=== PATIENT | female | born 1975 | race Caucasian/White ===

== ENCOUNTER 2016-06-07 11:08 | Inpatient (IN) | payer OTHER ==
[2016-06-07 11:52] VITALS: BMI 21.2
--- NOTE | 2016-06-07 14:13 | HP ---
COWS - Scale Resting Pulse: 1= [place] 81-100 Sweatin= Chills/Flushing Restless Observation: 3= Extraneous Movement Pupil Size: 2= Moderately Dilated Bone or Joint Aches: 4=Acute Joint/Muscle Pain Runny Nose/ Eye Tearin= Nasal Congestion GI Upset > 30mins: 1= Stomach Cramp Tremor Observation: 2= Slight Tremor Visible Yawning Observation: 2= >3x During Session Anxiety or Irritability: 1=Feels Anxious/Irritable Goose Flesh Skin: 0=Smooth Skin COWS Score: 18 CIWA Score - CIWA Score Nausea/Vomitin-No Nausea/No Vomiting Muscle Tremors: 3 Anxiety: 4-Mod. Anxious/Guarded Agitation: 4-Moderately Restless Paroxysmal Sweats: 1-Minimal Palms Moist Orientation: 0-Oriented Tacttile Disturbances: 3-Moderate Itch/Numb/Burn Auditory Disturbances: 0-None Visual Disturbances: 0-None Headache: 0-None Present CIWA-Ar Total Score: 15 Admission ROS S - HPI Chief Complaint: DETOX TX FOR HEROIN AND BENZO( URINE TOXICOLOGY NEGATIVE TODAY) Allergies/Adverse Reactions: Allergies Allergy/AdvReac Type Severity Reaction Status Date / Time No Known Allergies Allergy Verified 06/07/16 12:34 History of Present Illness: 40 Y/O FEMALE WITH A HX OF HEROIN AND KLONOPIN DEPENDENCE WITH OCCASIONAL COCAINE AND PCP USE SEEKING DETOX TX. Exam Limitations: No Limitations - Ebola screening Have you traveled outside of the country in the last 21 days: No Have you had contact with anyone from an Ebola affected area: No Have you been sick,other than usual withdrawal symptoms: No Do you have a fever: No - Review of Systems Constitutional: Chills, Night Sweats, Changes in sleep EENT: reports: Tearing, Nose Congestion, Dental Problems (FILLINGS/CAPPED TOOTH) Respiratory: reports: No Symptoms reported Cardiac: reports: No Symptoms Reported GI: reports: Constipated, Diarrhea, Nausea, Poor Fluid Intake, Vomiting : reports: No Symptoms Reported Musculoskeletal: reports: Back Pain, Joint Pain, Muscle Pain Integumentary: reports: Bruising (FROV IVD USE ON HANDS/ELBOW) Neuro: reports: Headache Endocrine: reports: No Symptoms Reported Hematology: reports: No Symptoms Reported Psychiatric: reports: Orientated x3, Anxious Other Systems: Reviewed and Negative Patient History - Patient Medical History Hx Anemia: No Hx Asthma: No Hx Chronic Obstructive Pulmonary Disease (COPD): No Hx Cardiac Disorders: No Hx Hypertension: No Hx Hypercholesterolemia: No HX Cerebrovascular Accident: No Hx Seizures: No Hx Diabetes: No Hx Gastrointestinal Disorders: No Hx Genitourinary Disorders: No Hx Sexually Transmitted Disorders: No Hx Renal Disease (ESRD): No Hx Thyroid Disease: No Hx Human Immunodeficiency Virus (HIV): No (NEGATIVE HX) Hx Hepatitis C: No Hx Depression: Yes (ANXIETY-GABAPENTIN/VISTARIL--DID NOT TAKE THEM.) Hx Suicide Attempt: No (DENIES) Hx Schizophrenia: No - Patient Surgical History Past Surgical History: Yes Hx Neurologic Surgery: No Hx Cataract Extraction: No Hx Cardiac Surgery: No Hx Lung Surgery: No Hx Breast Surgery: No Hx Breast Biopsy: No Hx Abdominal Surgery: No Hx Appendectomy: Yes Hx Genitourinary Surgery: Yes (URETHOTOMY IN 1998) Hx Section: No Hx Orthopedic Surgery: No Hx Hysterectomy: No Anesthesia Reaction: No - PPD History Previous Implant?: Yes Documented Results: Negative w/o proof Implanted On Prior R Admission?: No PPD to be Administered?: Yes - Reproductive History Patient is a Female of Child Bearing Age (11 -55 yrs old): Yes Last Menstrual Period: 05/27/16 Patient : No - Smoking Cessation Smoking history: Current every day smoker Have you smoked in the past 12 months: Yes Aproximately how many cigarettes per day: 10 Hx Chewing Tobacco Use: No Initiated information on smoking cessation: Yes 'Breaking Loose' booklet given: 06/07/16 - Substance & Tx. History Hx Alcohol Use: No (DENIES) Hx Substance Use: Yes (HEROIN/COCAINE/KLONOPIN/PCP) Substance Use Type: Cocaine, Heroin, Tranquilizers Hx Substance Use Treatment: Yes ([facility]-DETOX) - Substances Abused Heroin Route: Injection Frequency: Daily Amount used: 6-8 BAGS Age of first use: 29 Date of Last Use: 06/07/16 Benzodiazepine (Klonopin) Route: Oral Frequency: Daily Amount used: 4MG Age of first use: 38 Date of Last Use: 06/07/16 PCP Route: Smoking Frequency: 1-3 times last 30 days Amount used: 1 BLUNT Age of first use: 39 Date of Last Use: 06/04/16 Cocaine Route: Inhalation Frequency: 1-3 times last 30 days (3 TIMES LAST WEEK AND LAST NIGHT FOR THE FIRST TIME.) Amount used: 1/2 DIME Age of first use: 40 Date of Last Use: 06/06/16 Family Disease History - Family Disease History Family Disease History: Other: Mother (HTN) Admission Physical Exam [facility] - Vital Signs Vital Signs: Vital Signs - 24 hr 06/07/16 11:48 Temperature 96.4 F L Pulse Rate 97 H Respiratory 20 Rate Blood Pressure 100/61 - Physical General Appearance: Yes: Moderate Distress, Irritable, Anxious HEENTM: Yes: EOMI, Normocephalic, KRISTI, Pharynx Normal Respiratory: Yes: Chest Non-Tender, Lungs Clear, Normal Breath Sounds, No Respiratory Distress Neck: Yes: Supple, Trachea in good position Breast: Yes: Breast Exam Deferred Cardiology: Yes: Regular Rhythm, Regular Rate, S1, S2 Abdominal: Yes: Normal Bowel Sounds, Non Tender, Flat, Soft Genitourinary: Yes: Other (N/C) Musculoskeletal: Yes: full range of Motion, Gait Steady Extremities: Yes: Normal Range of Motion, Non-Tender Neurological: Yes: quality review specialist II-XII NML intact, Fully Oriented, Alert, Motor Strength 5/5 Integumentary: Yes: Dry, Warm, Track Rizzo (BOTH ELBOWS/HAND) Lymphatic: Yes: Within Normal Limits - Diagnostic (1) Opioid dependence with withdrawal Current Visit: Yes Status: Acute (2) PCP dependence Current Visit: Yes Status: Acute (3) Cocaine abuse Current Visit: Yes Status: Acute (4) Anxiety and depression Current Visit: Yes Status: Suspected Cleared for Admission [facility] - Detox or Rehab [facility] Level of Care: Medically Managed Detox Regimen/Protocol: Methadone [facility] Breath Alcohol Content Breath Alcohol Content: 0 Urine Pregancy Test - Result Urine Test Results: Negative- NO Line Present Urine Drug Screen - Results Drug Screen Negative: No Urine Drug Screen Results: ASHTYN-Cocaine, OPI-Opiates, PCP-Phencyclidine
[2016-06-07] MEDS ORDERED: METHADONE HCL 10 MG TABLET (FOR DETOX USE ONLY) PO ONE ×2 (14:29→23:00)
[2016-06-07] MEDS ORDERED: MAG HYDROX/AL HYDROX/SIMETH 30 ML UNIT-DOSE CUP PO PRN (14:29)
[2016-06-07] MEDS ORDERED: MAGNESIUM CITRATE 300 ML BOTTLE PO PRN (14:29)
[2016-06-07] MEDS ORDERED: P-EPHED 60MG/TRIPROLIDI 2.5MG TABLET PO PRN (14:29)
[2016-06-07] MEDS ORDERED: MENTHOL/PHENOL 1 EACH UD MM PRN (14:29)
[2016-06-07] MEDS ORDERED: IBUPROFEN 400 MG TABLET (FP) PO PRN (14:29)
[2016-06-07] MEDS ORDERED: guaiFENesin/D-METHORPHAN HB 10 ML UNIT-DOSE CUPS PO PRN (14:29)
[2016-06-07] MEDS ORDERED: diphenhydrAMINE HCL 50 MG CAPSULE PO PRN (14:29)
[2016-06-07] MEDS ORDERED: LOPERAMIDE HCL 2 MG CAPSULE PO PRN (14:29)
[2016-06-07] MEDS ORDERED: hydrOXYzine PAMOATE 50 MG CAPSULE (FP) PO PRN (14:29)
[2016-06-07] MEDS: diazePAM 5 MG TABLET PO PRN (15:39)
[2016-06-07] MEDS: NICOTINE 14 MG/24 HOURS TOPICAL PATCH TD SCH (15:43)
[2016-06-07 19:44] LABS: URINE APPEARANCE CLOUDY; URINE BILIRUBIN NEGATIVE (NEGATIVE); URINE COLOR DKYELLOW; URINE GLUCOSE (UA) NEGATIVE (NEGATIVE); URINE KETONE NEGATIVE (NEGATIVE); URINE LEUK ESTERASE NEGATIVE (NEGATIVE); URINE NITRITE NEGATIVE (NEGATIVE); URINE UROBILINOGEN 2.0 E.U/dl E.U./dl (0.2-1.0)
[2016-06-07 19:58] LABS: URINE BLOOD 1+ (NEGATIVE); URINE PROTEIN 1+ (NEGATIVE)
[2016-06-07 20:14] LABS: URINE BACTERIA RARE /hpf (NONE SEEN); URINE MUCUS MODERATE; URINE RBC 23 /hpf (0-3); URINE WBC 7 /hpf (3-5)
[2016-06-07] MEDS: THIAMINE HCL 100 MG TABLET (FP) PO SCH (22:08)
[2016-06-08] MEDS ORDERED: METHADONE HCL 10 MG TABLET (FOR DETOX USE ONLY) PO ONE (10:00)
[2016-06-08 10:16] LABS: MCH 28.8 pg (25.7-33.7); MCHC 32.5 g/dl (32.0-36.0); MEAN CELL VOLUME 88.7 fl (80-96); MEAN PLT VOLUME 10.6 fl (7.5-11.1); PLATELET COUNT 194 K/MM3 (134-434); RDW 14.7 % (11.6-15.6); WHITE BLOOD COUNT 4.9 K/mm3 (4.0-10.0)
[2016-06-08] MEDS: diazePAM 5 MG TABLET PO PRN ×2 (10:16→22:08)
[2016-06-08] MEDS: ACETAMINOPHEN 325 MG TABLET (FP) PO PRN (10:16)
[2016-06-08] MEDS: PRENATAL VITAMINS W/ FOLIC ACID TABLET (FP) PO SCH (10:16)
[2016-06-08] MEDS: NICOTINE 14 MG/24 HOURS TOPICAL PATCH TD SCH (10:17)
--- NOTE | 2016-06-08 10:33 | PN ---
S CIWA - CIWA Score Nausea/Vomitin Muscle Tremors: 3 Anxiety: 2 Agitation: 4-Moderately Restless Paroxysmal Sweats: 2 Orientation: 0-Oriented Tacttile Disturbances: 2-Mild Itch/Numbness/Burn Auditory Disturbances: 0-None Visual Disturbances: 2-Mild Sensitivity Headache: 1-Very Mild CIWA-Ar Total Score: 18 BHS COWS - Scale Resting Pulse: 1= [place] 81-100 Sweatin=Flushed/Facial Moisture Restless Observation: 1= Difficult to Sit Still Pupil Size: 2= Moderately Dilated Bone or Joint Aches: 2= Severe Diffuse Aches Runny Nose/ Eye Tearin= Runny Nose/Eyes GI Upset > 30mins: 2= Nausea/Diarrhea Tremor Observation of Outstretched Hands: 2= Slight Tremor Visible Yawning Observation: 1= 1-2x During Session Anxiety or Irritability: 2=Irritable/Anxious Goose Flesh Skin: 0=Smooth Skin COWS Score: 17 S Progress Note (SOAP) Objective: 06/08/16 10:32 Laboratory Tests 06/07/16 06/08/16 15:46 06:00 WBC 4.9 RBC 4.29 Hgb 12.4 Hct 38.0 MCV 88.7 MCHC 32.5 RDW 14.7 Plt Count 194 MPV 10.6 Urine Color Dkyellow Urine Appearance Cloudy Urine pH 5.0 Ur Specific [place] 1.029 Urine Protein 1+ H Urine Glucose (UA) Negative Urine Ketones Negative Urine Blood 1+ H Urine Nitrite Negative Urine Bilirubin Negative Urine Urobilinogen 2.0 e.u/dl H Ur Leukocyte Esterase Negative Urine RBC 23 Urine WBC 7 Ur Epithelial Cells Many Urine Bacteria Rare Urine Mucus Moderate Vital Signs - 24 hr 06/07/16 06/07/16 06/07/16 11:48 15:27 18:02 Temperature 96.4 F L 97.7 F 97.3 F L Pulse Rate 97 H 94 H 76 Respiratory 20 18 18 Rate Blood Pressure 100/61 97/56 97/53 06/07/16 06/07/16 06/08/16 18:18 21:43 00:30 Temperature 97.3 F L 97.7 F Pulse Rate 76 103 H Respiratory 18 16 16 Rate Blood Pressure 97/53 84/60 06/08/16 06/08/16 06:00 10:15 Temperature 97.9 F 97.7 F Pulse Rate 84 92 H Respiratory 18 18 Rate Blood Pressure 101/61 100/61 Assessment: 06/08/16 10:33 ONGOING WITHDRAWAL Plan: CONTINUE DETOX PROTOCOL
[2016-06-08 10:35] LABS: ALBUMIN 3.7 g/dl (3.4-5.0); ALK PHOS 52 U/L (45-117); ANION GAP 8 (8-16); BILIRUBIN,TOTAL 0.2 mg/dL (0.2-1.0); CALCIUM 8.9 mg/dL (8.5-10.1); CO2 31 mmol/L (21-32); CREATININE 0.7 mg/dL (0.55-1.02); GLUCOSE,RANDOM 92 mg/dL (74-106); SGOT/AST 21 U/L (15-37); SGPT/ALT 37 U/L (12-78); TOT PROT 6.8 g/dl (6.4-8.2)
--- NOTE | 2016-06-08 11:14 | EKG ---
Test Reason : Blood Pressure : / mmHG Vent. Rate : 075 BPM Atrial Rate : 075 BPM P-R Int : 090 ms QRS Dur : 090 ms QT Int : 372 ms P-R-T Axes : 049 061 046 degrees QTc Int : 415 ms SINUS RHYTHM WITH SHORT IN OTHERWISE NORMAL ECG NO PREVIOUS ECGS AVAILABLE Confirmed by MARY JANE PAYAN MD ([id number]) on 06/08/2016 11:14:24 AM Referred By: Confirmed By:MARY JANE PAYAN MD
--- NOTE | 2016-06-08 15:28 | CONSULT ---
[facility] Psychiatric Consult - Data Date of interview: 06/08/16 Admission source: [facility] Identifying data: First admission to [facility] for this 40 y/o female seeking detox treatment on for heroin,benzodiazepine (klonopin),cocaine and phencyclidine dependence.Patient is single without children,domiciled, unemployed and supported on food stamps. Substance Abuse History: - Smoking Cessation. Smoking history: Current every day smoker. Have you smoked in the past 12 months: Yes. Aproximately how many cigarettes per day: 10. Hx Chewing Tobacco Use: No. Initiated information on smoking cessation: Yes. 'Breaking Loose' booklet given: 06/07/16. - Substance & Tx. History. Hx Alcohol Use: No (DENIES). Hx Substance Use: Yes (HEROIN/ COCAINE/KLONOPIN/PCP). Substance Use Type: Cocaine, Heroin, Tranquilizers. Hx Substance Use Treatment: Yes ([facility]-DETOX). - Substances Abused. Heroin. Route: Injection. Frequency: Daily. Amount used: 6-8 BAGS. Age of first use: 29. Date of Last Use: 06/07/16. Benzodiazepine ( Klonopin). Route: Oral. Frequency: Daily. Amount used: 4MG. Age of first use : 38. Date of Last Use: 06/07/16. PCP. Route: Smoking. Frequency: 1-3 times last 30 days. Amount used: 1 BLUNT. Age of first use: 39. Date of Last Use: 06/04/16. Cocaine. Route: Inhalation. Frequency: 1-3 times last 30 days (3 TIMES LAST WEEK AND LAST NIGHT FOR THE FIRST TIME.). Amount used: 1/2 DIME. Age of first use: 40. Date of Last Use: 06/06/16. Confirmed by the patient in this session. Medical History: History of urethrotomy (1998). Psychiatric History: No reported history of psychiatric hospitalizations.Diagnosed with Mood Disorder.Contact with Psychiatry was initiated two years ago to address mood disturbances experienced by the patient in response to the sudden of her boyfriend (drug overdose as per patient) .Ms Pederson is currently seeing a therapist/nurse's practitioner team at the [facility].Medications :lamictal 100 mg/hs + remeron 30 mg/ hs + gabapentin 300 mg po tid.No history of suicide attempts. Physical/Sexual Abuse/Trauma History: Patient denies history of suicide attempts. Additional Comment: Urine Drug Screen Results: ASHTYN-Cocaine, OPI-Opiates, PCP- Phencyclidine.Noted. Mental Status Exam - Mental Status Exam Alert and Oriented to: Time, Place, Person Cognitive Function: Good Patient Appearance: Well Groomed (petite,thin habitus) Mood: Withdrawn Affect: Constricted Patient Behavior: Fatigued, Appropriate, Cooperative Speech Pattern: Clear Voice Loudness: Normal Thought Process: Goal Oriented Thought Disorder: Not Present Hallucinations: Denies Suicidal Ideation: Denies Homicidal Ideation: Denies Insight/Judgement: Poor Sleep: Poorly, Difficulty falling asleep Appetite: Good Muscle strength/Tone: Normal Gait/Station: Normal Psychiatric Findings - Problem List ([place] 1, 2,3) (1) Opioid dependence with withdrawal Current Visit: Yes Status: Acute (2) PCP dependence Current Visit: Yes Status: Acute (3) Cocaine abuse Current Visit: Yes Status: Acute (4) Nicotine dependence Current Visit: Yes Status: Acute (5) Substance induced mood disorder Current Visit: Yes Status: Acute (6) Mood disorder Current Visit: Yes Status: Chronic Comment: History by patient. (7) Insomnia Current Visit: Yes Status: Chronic - Initial Treatment Plan Initial Treatment Plan: Psychoeducation.Detoxification.Medications : lamictal 100 mg po hs + gabapentin 300 mg po tid + remeron 5 mg po hs (reduced dose at patient's request).Side effects/benefits discussed with the patient.She is made aware of the risk of exfoliative dermatitis from use of lamictal and she is advis advised to alert MD/RN if occurrence of skin rash.Patient indicates that she last took her medications two days ago.Observation.Medications are verified via review of pharmacy claims.Filled scripts on 05/29/16 for the three drugs @ [facility] # [id number].No scripts necessary at discharge.
[2016-06-08] MEDS ORDERED: MIRTAZAPINE 15 MG TABLET (FP) PO SCH (22:00)
[2016-06-08] MEDS: lamoTRIgine 100 MG TABLET (FP) PO SCH (22:05)
[2016-06-08] MEDS: MIRTAZAPINE 15 MG TABLET (FP) PO SCH (22:06)
[2016-06-08] MEDS: THIAMINE HCL 100 MG TABLET (FP) PO SCH (22:06)
[2016-06-08] MEDS: GABAPENTIN 300 MG CAPSULE (FP) PO SCH (22:06)
[2016-06-09] MEDS: diazePAM 5 MG TABLET PO PRN ×3 (05:17→22:17)
[2016-06-09] MEDS: GABAPENTIN 300 MG CAPSULE (FP) PO SCH ×3 (05:17→22:14)
[2016-06-09] MEDS ORDERED: METHADONE HCL 5 MG TABLET (FOR DETOX USE ONLY) PO ONE (10:00)
--- NOTE | 2016-06-09 10:03 | PN ---
[facility] CI[facility] - CIWA Score Nausea/Vomitin Muscle Tremors: 3 Anxiety: 3 Agitation: 3 Paroxysmal Sweats: 1-Minimal Palms Moist Orientation: 0-Oriented Tacttile Disturbances: 1-Very Mild Itch/Numbness Auditory Disturbances: 1-Very Mild Visual Disturbances: 1-Very Mild Sensitivity Headache: 2-Mild CIWA-Ar Total Score: 18 BHS COWS - Scale Resting Pulse: 1= [place] 81-100 Sweatin=Flushed/Facial Moisture Restless Observation: 3= Extraneous Movement Pupil Size: 1= Pupils >than Normal Bone or Joint Aches: 2= Severe Diffuse Aches Runny Nose/ Eye Tearin= Runny Nose/Eyes GI Upset > 30mins: 2= Nausea/Diarrhea Tremor Observation of Outstretched Hands: 2= Slight Tremor Visible Yawning Observation: 1= 1-2x During Session Anxiety or Irritability: 2=Irritable/Anxious Goose Flesh Skin: 0=Smooth Skin COWS Score: 18 S Progress Note (SOAP) Subjective: ALERT,IRRITABLE,ANXIOUS,INTERRUPTED SLEEP,TREMOR,INTERRUPTED SLEEP Objective: 06/09/16 10:01 Vital Signs Temperature 98.1 F 06/09/16 09:46 Pulse Rate 81 06/09/16 09:46 Respiratory Rate 18 06/09/16 09:46 Blood Pressure 101/68 06/09/16 09:46 O2 Sat by Pulse Oximetry (%) EKG NSR WITH SHORT ND Laboratory Last Values WBC 4.9 K/mm3 (4.0-10.0) 06/08/16 06:00 RBC 4.29 M/mm3 (3.60-5.2) 06/08/16 06:00 Hgb 12.4 GM/dL (10.7-15.3) 06/08/16 06:00 Hct 38.0 % (32.4-45.2) 06/08/16 06:00 MCV 88.7 fl (80-96) 06/08/16 06:00 MCHC 32.5 g/dl (32.0-36.0) 06/08/16 06:00 RDW 14.7 % (11.6-15.6) 06/08/16 06:00 Plt Count 194 K/MM3 (134-434) 06/08/16 06:00 MPV 10.6 fl (7.5-11.1) 06/08/16 06:00 Sodium 143 mmol/L (136-145) 06/08/16 06:00 Potassium 4.0 mmol/L (3.5-5.1) 06/08/16 06:00 Chloride 104 mmol/L (98-107) 06/08/16 06:00 Carbon Dioxide 31 mmol/L (21-32) 06/08/16 06:00 Anion Gap 8 (8-16) 06/08/16 06:00 BUN 17 mg/dL (7-18) 06/08/16 06:00 Creatinine 0.7 mg/dL (0.55-1.02) 06/08/16 06:00 Creat Clearance w eGFR > 60 (>60) 06/08/16 06:00 Random Glucose 92 mg/dL (74-106) 06/08/16 06:00 Calcium 8.9 mg/dL (8.5-10.1) 06/08/16 06:00 Total Bilirubin 0.2 mg/dL (0.2-1.0) 06/08/16 06:00 AST 21 U/L (15-37) 06/08/16 06:00 ALT 37 U/L (12-78) 06/08/16 06:00 Alkaline Phosphatase 52 U/L (45-117) 06/08/16 06:00 Total Protein 6.8 g/dl (6.4-8.2) 06/08/16 06:00 Albumin 3.7 g/dl (3.4-5.0) 06/08/16 06:00 Urine Color Dkyellow 06/07/16 15:46 Urine Appearance Cloudy 06/07/16 15:46 Urine pH 5.0 (5.0-8.0) 06/07/16 15:46 Ur Specific [place] 1.029 (1.001-1.035) 06/07/16 15:46 Urine Protein 1+ (NEGATIVE) H 06/07/16 15:46 Urine Glucose (UA) Negative (NEGATIVE) 06/07/16 15:46 Urine Ketones Negative (NEGATIVE) 06/07/16 15:46 Urine Blood 1+ (NEGATIVE) H 06/07/16 15:46 Urine Nitrite Negative (NEGATIVE) 06/07/16 15:46 Urine Bilirubin Negative (NEGATIVE) 06/07/16 15:46 Urine Urobilinogen 2.0 e.u/dl E.U./dl (0.2-1.0) H 06/07/16 15:46 Ur Leukocyte Esterase Negative (NEGATIVE) 06/07/16 15:46 Urine RBC 23 /hpf (0-3) 06/07/16 15:46 Urine WBC 7 /hpf (3-5) 06/07/16 15:46 Ur Epithelial Cells Many /hpf (FEW) 06/07/16 15:46 Urine Bacteria Rare /hpf (NONE SEEN) 06/07/16 15:46 Urine Mucus Moderate 06/07/16 15:46 RPR Titer Nonreactive (NONREACTIVE) 06/08/16 06:00 Assessment: 06/09/16 10:02 WITHDRAWAL SYMPTOM Plan: CONTINUE DETOX,REPEAT UA,ENCOURAGE ORAL FLUID
[2016-06-09] MEDS: PRENATAL VITAMINS W/ FOLIC ACID TABLET (FP) PO SCH (10:06)
[2016-06-09] MEDS: NICOTINE 14 MG/24 HOURS TOPICAL PATCH TD SCH (10:07)
[2016-06-09 17:58] LABS: URINE APPEARANCE SLCLOUDY; URINE BILIRUBIN NEGATIVE (NEGATIVE); URINE BLOOD NEGATIVE (NEGATIVE); URINE COLOR YELLOW; URINE GLUCOSE (UA) NEGATIVE (NEGATIVE); URINE KETONE NEGATIVE (NEGATIVE); URINE NITRITE NEGATIVE (NEGATIVE); URINE PROTEIN NEGATIVE (NEGATIVE); URINE UROBILINOGEN NEGATIVE E.U./dl (0.2-1.0)
[2016-06-09 17:59] LABS: URINE LEUK ESTERASE 1+ (NEGATIVE)
[2016-06-09 18:16] LABS: CALCIUM OXALATE CRYSTALS RARE /hpf (NONE SEEN); URINE MUCUS RARE; URINE RBC 2 /hpf (0-3); URINE WBC 3 /hpf (3-5)
[2016-06-09] MEDS: lamoTRIgine 100 MG TABLET (FP) PO SCH (22:14)
[2016-06-09] MEDS: THIAMINE HCL 100 MG TABLET (FP) PO SCH (22:14)
[2016-06-09] MEDS: MIRTAZAPINE 15 MG TABLET (FP) PO SCH (22:15)
[2016-06-09] MEDS: NICOTINE POLACRILEX 2 MG GUM BUC PRN (22:17)
[2016-06-10] MEDS: GABAPENTIN 300 MG CAPSULE (FP) PO SCH ×3 (05:18→22:11)
[2016-06-10] MEDS: diazePAM 5 MG TABLET PO PRN ×2 (07:51→14:24)
--- NOTE | 2016-06-10 09:57 | PN ---
S Progress Note (SOAP) Subjective: alert,irritable,interrupted sleep,pain in the body and back Objective: 06/10/16 09:55 Vital Signs Temperature 96.7 F L 06/10/16 09:21 Pulse Rate 96 H 06/10/16 09:21 Respiratory Rate 18 06/10/16 09:21 Blood Pressure 101/63 06/10/16 09:21 O2 Sat by Pulse Oximetry (%) 06/10/16 09:55 Laboratory Results - last 24 hr 06/09/16 17:40 Urine Color Yellow Urine Appearance Slcloudy Urine pH 6.0 Ur Specific [place] 1.024 Urine Protein Negative Urine Glucose (UA) Negative Urine Ketones Negative Urine Blood Negative Urine Nitrite Negative Urine Bilirubin Negative Urine Urobilinogen Negative Ur Leukocyte Esterase 1+ H Urine RBC 2 Urine WBC 3 Ur Epithelial Cells Many Calcium Oxalate Crystal Rare Urine Mucus Rare Assessment: 06/10/16 09:55 withdrawal symptom 06/10/16 09:56 Plan: continue detox
[2016-06-10] MEDS ORDERED: METHADONE HCL 5 MG TABLET (FOR DETOX USE ONLY) PO ONE (10:00)
[2016-06-10] MEDS: NICOTINE 14 MG/24 HOURS TOPICAL PATCH TD SCH (10:08)
[2016-06-10] MEDS: PRENATAL VITAMINS W/ FOLIC ACID TABLET (FP) PO SCH (10:08)
[2016-06-10] MEDS: NICOTINE POLACRILEX 2 MG GUM BUC PRN (11:53)
[2016-06-10] MEDS: MAGNESIUM HYDROX 2400MG/30ML ORAL SUSPENSION 30 ML CUP PO PRN (22:11)
[2016-06-10] MEDS: lamoTRIgine 100 MG TABLET (FP) PO SCH (22:11)
[2016-06-10] MEDS: THIAMINE HCL 100 MG TABLET (FP) PO SCH (22:11)
[2016-06-10] MEDS: MIRTAZAPINE 15 MG TABLET (FP) PO SCH (22:13)
[2016-06-11] MEDS: GABAPENTIN 300 MG CAPSULE (FP) PO SCH ×3 (05:23→22:10)
[2016-06-11] MEDS ORDERED: METHADONE HCL 10 MG TABLET (FOR DETOX USE ONLY) PO ONE (10:00)
[2016-06-11] MEDS: PRENATAL VITAMINS W/ FOLIC ACID TABLET (FP) PO SCH (10:17)
[2016-06-11] MEDS: NICOTINE 14 MG/24 HOURS TOPICAL PATCH TD SCH (10:17)
[2016-06-11] MEDS: NICOTINE POLACRILEX 2 MG GUM BUC PRN (10:19)
--- NOTE | 2016-06-11 11:15 | PN ---
S Progress Note (SOAP) Subjective: ALERT,IRRITABLE,INTERRUPTED SLEEP Objective: 06/11/16 11:14 Vital Signs Temperature 97.2 F L 06/11/16 06:25 Pulse Rate 84 06/11/16 06:25 Respiratory Rate 18 06/11/16 06:25 Blood Pressure 98/50 06/11/16 06:25 O2 Sat by Pulse Oximetry (%) Assessment: 06/11/16 11:14 WITHDRAWAL SYMPTOM Plan: CONTINUE DETOX,DISCHARGE IN AM
[2016-06-11] MEDS: MAGNESIUM HYDROX 2400MG/30ML ORAL SUSPENSION 30 ML CUP PO PRN (12:33)
[2016-06-11] MEDS: MIRTAZAPINE 15 MG TABLET (FP) PO SCH (22:10)
[2016-06-11] MEDS: lamoTRIgine 100 MG TABLET (FP) PO SCH (22:10)
[2016-06-11] MEDS: THIAMINE HCL 100 MG TABLET (FP) PO SCH (22:11)
[2016-06-12] MEDS: GABAPENTIN 300 MG CAPSULE (FP) PO SCH (05:50)
[2016-06-12] MEDS ORDERED: METHADONE HCL 5 MG TABLET (FOR DETOX USE ONLY) PO ONE (06:00)
--- NOTE | 2016-06-12 08:35 | DS ---
[facility] Detox Discharge Summary Admission Date: 06/07/16 Discharge Date: 06/12/16 - History Present History: Cocaine Dependence, Opioid Dependence, Pcp Dependence - Physical Exam Results Vital Signs: Vital Signs Temperature 98.2 F 06/12/16 06:00 Pulse Rate 80 06/12/16 06:00 Respiratory Rate 16 06/12/16 06:00 Blood Pressure 92/62 06/12/16 06:00 O2 Sat by Pulse Oximetry (%) - Treatment Hospital Course: Detox Protocol Followed, Detoxed Safely, Responded well, Discharged Condition Good - Medication Discharge Medications: Ambulatory Orders Lamotrigine [Lamictal] 100 mg PO HS 11/25/15 Diclofenac Sodium [Voltaren -] 25 mg PO QID PRN #30 tablet. 02/27/16 Gabapentin [Neurontin -] 300 mg PO TID 06/07/16 Hydroxyzine Pamoate [Vistaril -] 1 - 2 cap PO BID PRN 06/07/16 Mirtazapine [Remeron -] 30 mg PO HS 06/07/16 Valacyclovir HCl [Valtrex] 2,000 mg PO Q12H 06/07/16 - Diagnosis (1) Cocaine abuse Current Visit: Yes Status: Acute (2) Nicotine dependence Current Visit: Yes Status: Acute (3) Opioid dependence with withdrawal Current Visit: Yes Status: Acute (4) PCP dependence Current Visit: Yes Status: Acute - AMA Did Patient Leave Against Medical Advice: No
[2016-06-12 09:48] VITALS: BP 107/58; PULSE 108; TEMP 98.1
[2016-06-12] MEDS: PRENATAL VITAMINS W/ FOLIC ACID TABLET (FP) PO SCH (10:20)
[2016-06-12] MEDS: ACETAMINOPHEN 325 MG TABLET (FP) PO PRN (10:21)
== END 2016-06-12 11:45 | disposition home or self-care (01) | DRG 773 ==
LOC: YASAS 11:08 → Y6N 14:01
PROVIDERS: ADMIT Internal Medicine Addiction Medicine; ATTEND Internal Medicine Addiction Medicine
PROC: HZ2ZZZZ Detoxification Services for Substance Abuse Treatment (ICD-10-PCS; principal; 2016-06-07)
DX: F11.23 Opioid dependence with withdrawal (principal); F16.20 Hallucinogen dependence, uncomplicated; F14.10 Cocaine abuse, uncomplicated; F17.210 Nicotine dependence, cigarettes, uncomplicated; F19.24 Other psychoactive substance dependence with psychoactive substance-induced mood disorder; F39 Unspecified mood [affective] disorder; F41.8 Other specified anxiety disorders
CPT/HCPCS: 36415; 80053; 81003; 81015; 85027; 86593; 93005; 93010

== ENCOUNTER 2016-07-01 09:22 | Inpatient (IN) | payer OTHER ==
[2016-07-01 10:22] VITALS: BMI 21.0
--- NOTE | 2016-07-01 12:51 | HP ---
COWS - Scale Resting Pulse: 1= [place] 81-100 Sweatin=Flushed/Facial Moisture Restless Observation: 1= Difficult to Sit Still Pupil Size: 0= Normal to Room Light Bone or Joint Aches: 2= Severe Diffuse Aches Runny Nose/ Eye Tearin= Runny Nose/Eyes GI Upset > 30mins: 2= Nausea/Diarrhea Tremor Observation: 2= Slight Tremor Visible Yawning Observation: 1= 1-2x During Session Anxiety or Irritability: 2=Irritable/Anxious Goose Flesh Skin: 0=Smooth Skin COWS Score: 15 CIWA Score - CIWA Score Nausea/Vomitin-Mild Nausea/No Vomiting Muscle Tremors: 4-Moderate,w/Arms Extend Anxiety: 4-Mod. Anxious/Guarded Agitation: 4-Moderately Restless Paroxysmal Sweats: 3 Orientation: 0-Oriented Tacttile Disturbances: 1-Very Mild Itch/Numbness Auditory Disturbances: 0-None Visual Disturbances: 0-None Headache: 0-None Present CIWA-Ar Total Score: 17 Admission ROS S - HPI Chief Complaint: Withdrawal sx. Allergies/Adverse Reactions: Allergies Allergy/AdvReac Type Severity Reaction Status Date / Time No Known Allergies Allergy Verified 07/01/16 12:50 History of Present Illness: 40 y/o woman with a long hx. of heroin & alcohol dependence is admitted for detox.Pt. has been in previous detox,denies significant sobriety. Exam Limitations: No Limitations - Ebola screening Have you traveled outside of the country in the last 21 days: No Have you had contact with anyone from an Ebola affected area: No Have you been sick,other than usual withdrawal symptoms: No Do you have a fever: No - Review of Systems Constitutional: Diaphoresis EENT: reports: No Symptoms Reported Respiratory: reports: No Symptoms reported Cardiac: reports: No Symptoms Reported GI: reports: Nausea, Abdominal cramping : reports: No Symptoms Reported Musculoskeletal: reports: Back Pain Integumentary: reports: Sweating Neuro: reports: Tremors Endocrine: reports: No Symptoms Reported Hematology: reports: No Symptoms Reported Psychiatric: reports: No Sypmtoms Reported Other Systems: Reviewed and Negative Patient History - Patient Medical History Hx Anemia: No Hx Asthma: No Hx Chronic Obstructive Pulmonary Disease (COPD): No Hx Cancer: No Hx Cardiac Disorders: No Hx Congestive Heart Failure: No Hx Hypertension: No Hx Hypercholesterolemia: No Hx Pacemaker: No HX Cerebrovascular Accident: No Hx Seizures: No Hx Dementia: No Hx Diabetes: No Hx Gastrointestinal Disorders: No Hx Liver Disease: No Hx Genitourinary Disorders: No Hx Sexually Transmitted Disorders: No Hx Renal Disease (ESRD): No Hx Thyroid Disease: No Hx Human Immunodeficiency Virus (HIV): No (NEGATIVE HX) Hx Hepatitis C: No Hx Depression: Yes (ANXIETY-GABAPENTIN/VISTARIL--DID NOT TAKE THEM.) Hx Suicide Attempt: No Hx Bipolar Disorder: No Hx Schizophrenia: No - Patient Surgical History Past Surgical History: Yes Hx Neurologic Surgery: No Hx Cataract Extraction: No Hx Cardiac Surgery: No Hx Lung Surgery: No Hx Breast Surgery: No Hx Breast Biopsy: No Hx Abdominal Surgery: No Hx Appendectomy: Yes (2003) Hx Genitourinary Surgery: Yes (URETHOTOMY IN 1998) Hx Section: No Hx Orthopedic Surgery: No Hx Hysterectomy: No Anesthesia Reaction: No - PPD History Previous Implant?: Yes Documented Results: Negative w/proof Implanted On Prior [facility] Admission?: Yes Date: 06/09/16 PPD to be Administered?: No - Reproductive History Patient is a Female of Child Bearing Age (11 -55 yrs old): Yes Last Menstrual Period: 05/27/16 Patient : No - Smoking Cessation Smoking history: Current every day smoker Have you smoked in the past 12 months: Yes Aproximately how many cigarettes per day: 10 Hx Chewing Tobacco Use: No Initiated information on smoking cessation: Yes 'Breaking Loose' booklet given: 07/01/16 - Substance & Tx. History Hx Alcohol Use: Yes Hx Substance Use: Yes Substance Use Type: Alcohol, Heroin Hx Substance Use Treatment: Yes (detox) - Substances Abused Cocaine Route: Injection Frequency: 1-2 times per week Amount used: $30 Age of first use: 40 Date of Last Use: 06/26/16 Alprazolam (Xanax) Route: Oral Frequency: Daily Amount used: 4mg Age of first use: 17 Date of Last Use: 07/01/16 Benzodiazepine (Klonopin) Route: Oral Frequency: Daily Amount used: 4mg Age of first use: 17 Date of Last Use: 06/30/16 PCP Route: Inhalation Frequency: 1-2 times per week Amount used: $10 Age of first use: 19 Date of Last Use: 06/30/16 Heroin Route: Injection Frequency: Daily Amount used: 5bags- Age of first use: 29 Date of Last Use: 07/01/16 Family Disease History - Family Disease History Family Disease History: Heart Disease: Mother (HTN,drugs) Admission Physical Exam [facility] - Vital Signs Vital Signs: Vital Signs - 24 hr 07/01/16 10:15 Temperature 96.9 F L Pulse Rate 83 Respiratory 18 Rate Blood Pressure 102/64 - Physical General Appearance: Yes: Tremorous, Sweating, Anxious HEENTM: Yes: Nasal Congestion Respiratory: Yes: Chest Non-Tender, Lungs Clear, Normal Breath Sounds Neck: Yes: Supple Breast: Yes: Breast Exam Deferred Cardiology: Yes: Regular Rhythm, Regular Rate, S1, S2 Abdominal: Yes: Normal Bowel Sounds, Non Tender, Flat, Soft Genitourinary: Yes: Within Normal Limits Back: Yes: Within Normal Limits Musculoskeletal: Yes: Within Normal Limits Extremities: Yes: Tremors Neurological: Yes: Fully Oriented, Alert Integumentary: Yes: Diaphoresis Lymphatic: Yes: Within Normal Limits - Diagnostic (1) Opioid dependence with withdrawal Current Visit: Yes Status: Acute (2) Sedative, hypnotic or anxiolytic dependence with withdrawal, uncomplicated Current Visit: Yes Status: Acute Cleared for Admission [facility] - Detox or Rehab [facility] Level of Care: Medically Managed Detox Regimen/Protocol: Methadone/Valium [facility] Breath Alcohol Content Breath Alcohol Content: 0 Urine Pregancy Test - Result Urine Test Results: Negative- NO Line Present Urine Drug Screen - Results Drug Screen Negative: No Urine Drug Screen Results: ASHTYN-Cocaine, OPI-Opiates, PCP-Phencyclidine, BZO- Benzodiazepines, TCA-Tricyclic Antidepress, OXY-Oxycodone
[2016-07-01] MEDS ORDERED: hydrOXYzine PAMOATE 50 MG CAPSULE (FP) PO PRN (12:58)
[2016-07-01] MEDS ORDERED: MAG HYDROX/AL HYDROX/SIMETH 30 ML UNIT-DOSE CUP PO PRN (12:58)
[2016-07-01] MEDS ORDERED: diazePAM 5 MG TABLET PO ONE (12:58)
[2016-07-01] MEDS ORDERED: METHADONE HCL 10 MG TABLET (FOR DETOX USE ONLY) PO ONE ×2 (12:58→23:00)
[2016-07-01] MEDS ORDERED: MAGNESIUM HYDROX 2400MG/30ML ORAL SUSPENSION 30 ML CUP PO PRN (12:58)
[2016-07-01] MEDS ORDERED: MAGNESIUM CITRATE 300 ML BOTTLE PO PRN (12:58)
[2016-07-01] MEDS ORDERED: diazePAM 5 MG TABLET PO PRN (12:58)
[2016-07-01] MEDS ORDERED: guaiFENesin/D-METHORPHAN HB 10 ML UNIT-DOSE CUPS PO PRN (12:58)
[2016-07-01] MEDS ORDERED: ACETAMINOPHEN 325 MG TABLET (FP) PO PRN (12:58)
[2016-07-01] MEDS ORDERED: P-EPHED 60MG/TRIPROLIDI 2.5MG TABLET PO PRN (12:58)
[2016-07-01] MEDS ORDERED: LOPERAMIDE HCL 2 MG CAPSULE PO PRN (12:58)
[2016-07-01] MEDS ORDERED: MENTHOL/PHENOL 1 EACH UD MM PRN (12:58)
[2016-07-01] MEDS ORDERED: IBUPROFEN 400 MG TABLET (FP) PO PRN (12:58)
[2016-07-01] MEDS: NICOTINE 21 MG/24 HOURS TOPICAL PATCH TD SCH (14:34)
[2016-07-01] MEDS: diazePAM 5 MG TABLET PO SCH ×2 (14:34→22:42)
[2016-07-01 20:54] LABS: URINE APPEARANCE CLOUDY; URINE BLOOD NEGATIVE (NEGATIVE); URINE COLOR RED; URINE GLUCOSE (UA) NEGATIVE (NEGATIVE); URINE KETONE TRACE (NEGATIVE); URINE NITRITE NEGATIVE (NEGATIVE); URINE UROBILINOGEN 4.0 E.U/dl E.U./dl (0.2-1.0)
[2016-07-01 20:58] LABS: URINE PROTEIN 1+ (NEGATIVE)
[2016-07-01 20:59] LABS: URINE LEUK ESTERASE 1+ (NEGATIVE)
[2016-07-01 21:04] LABS: URINE BACTERIA RARE /hpf (NONE SEEN); URINE MUCUS MANY; URINE RBC 7 /hpf (0-3); URINE WBC 39 /hpf (3-5)
[2016-07-01] MEDS: THIAMINE HCL 100 MG TABLET (FP) PO SCH (22:43)
[2016-07-01] MEDS: diphenhydrAMINE HCL 50 MG CAPSULE PO PRN (22:44)
[2016-07-02] MEDS: diazePAM 5 MG TABLET PO SCH ×3 (06:13→22:57)
[2016-07-02] MEDS ORDERED: METHADONE HCL 10 MG TABLET (FOR DETOX USE ONLY) PO SCH (10:00)
[2016-07-02 10:35] LABS: MCH 28.9 pg (25.7-33.7); MCHC 32.5 g/dl (32.0-36.0); MEAN CELL VOLUME 88.8 fl (80-96); MEAN PLT VOLUME 9.2 fl (7.5-11.1); PLATELET COUNT 208 K/MM3 (134-434); RDW 14.1 % (11.6-15.6); WHITE BLOOD COUNT 5.2 K/mm3 (4.0-10.0)
[2016-07-02 10:38] LABS: ALBUMIN 3.5 g/dl (3.4-5.0); ALK PHOS 49 U/L (45-117); ANION GAP 5 (8-16); BILIRUBIN,TOTAL 0.3 mg/dL (0.2-1.0); CO2 34 mmol/L (21-32); CREATININE 0.7 mg/dL (0.55-1.02); GLUCOSE,RANDOM 105 mg/dL (74-106); SGOT/AST 81 U/L (15-37); SGPT/ALT 131 U/L (12-78); TOT PROT 6.3 g/dl (6.4-8.2)
[2016-07-02] MEDS: PRENATAL VITAMINS W/ FOLIC ACID TABLET (FP) PO SCH (10:42)
[2016-07-02] MEDS: NICOTINE 21 MG/24 HOURS TOPICAL PATCH TD SCH (10:43)
--- NOTE | 2016-07-02 11:20 | CONSULT ---
[facility] Psychiatric Consult - Data Date of interview: 07/02/16 Admission source: [facility] Identifying data: This is 40 years old female with history of nom psychiatic hospitalizations, intoxicated with: Opioids, Xanax, PCP, Cocaine. repoorts history of anxiety and depression, reports taking prior to admission: Lamictal 125mg po qhs,. Gabapentin 400mg po tid. Vistaril prn q4 tanner anxiety Substance Abuse History: - Smoking Cessation. Smoking history: Current every day smoker. Have you smoked in the past 12 months: Yes. Aproximately how many cigarettes per day: 10. Hx Chewing Tobacco Use: No. Initiated information on smoking cessation: Yes. 'Breaking Loose' booklet given: 07/01/16. - Substance & Tx. History. Hx Alcohol Use: Yes. Hx Substance Use: Yes. Substance Use Type : Alcohol, Heroin. Hx Substance Use Treatment: Yes (detox). - Substances Abused. Cocaine. Route: Injection. Frequency: 1-2 times per week. Amount used: $30. Age of first use: 40. Date of Last Use: 06/26/16. Alprazolam ( Xanax). Route: Oral. Frequency: Daily. Amount used: 4mg. Age of first use: 17. Date of Last Use: 07/01/16. Benzodiazepine (Klonopin). Route: Oral. Frequency: Daily. Amount used: 4mg. Age of first use: 17. Date of Last Use: 06/30/16. PCP. Route: Inhalation. Frequency: 1-2 times per week. Amount used: $10. Age of first use: 19. Date of Last Use: 06/30/16. Heroin. Route: Injection. Frequency: Daily. Amount used: 5bags-. Age of first use: 29. Date of Last Use: 07/01/16 Medical History: Denies Psychiatric History: Patient reports history of anxiety and depression, reports takijg prior to admission: Lamictal 125mg po qhs,. Gabapentin 400mg po tid. Vistaril prn q4 tanner anxiety Physical/Sexual Abuse/Trauma History: Denies Additional Comment: Lamictal 125mg po qhs,. Gabapentin 400mg po tid. Vistaril prn q4 tanner anxiety Mental Status Exam - Mental Status Exam Alert and Oriented to: Person Cognitive Function: Fair Patient Appearance: Unkempt Mood: Sad Affect: Flat Patient Behavior: Sedated Speech Pattern: Delayed Voice Loudness: Mildly Soft/Quiet Thought Process: Circumstantial, Goal Oriented Thought Disorder: Being Controlled Hallucinations: Denies Suicidal Ideation: Denies Homicidal Ideation: Denies Insight/Judgement: Fair Sleep: Difficulty falling asleep Appetite: Weight loss Muscle strength/Tone: Mild Hypertonicity Gait/Station: Shuffling Additional Comments: Lamictal 125mg po qhs,. Gabapentin 400mg po tid. Vistaril prn q4 tanner anxiety Psychiatric Findings - Problem List ([place] 1, 2,3) (1) Opioid dependence with withdrawal Current Visit: Yes Status: Acute (2) Sedative, hypnotic or anxiolytic dependence with withdrawal, uncomplicated Current Visit: Yes Status: Acute (3) Cocaine abuse Current Visit: No Status: Acute (4) Nicotine dependence Current Visit: No Status: Acute (5) PCP dependence Current Visit: No Status: Acute (6) Substance induced mood disorder Current Visit: No Status: Acute (7) Mood disorder Current Visit: No Status: Chronic Comment: History by patient. (8) Anxiety and depression Current Visit: No Status: Suspected - Initial Treatment Plan Initial Treatment Plan: Lamictal 125mg po qhs,. Gabapentin 400mg po tid. Vistaril prn q4 tanner anxiety
--- NOTE | 2016-07-02 11:21 | PN ---
[facility] CIWA - CIWA Score Nausea/Vomitin-No Nausea/No Vomiting Muscle Tremors: 4-Moderate,w/Arms Extend Anxiety: 3 Agitation: 4-Moderately Restless Paroxysmal Sweats: 3 Orientation: 0-Oriented Tacttile Disturbances: 0-None Auditory Disturbances: 0-None Visual Disturbances: 0-None Headache: 1-Very Mild CIWA-Ar Total Score: 15 S COWS - Scale Resting Pulse: 0= [place] 80 or Below Sweatin= Chills/Flushing Restless Observation: 1= Difficult to Sit Still Pupil Size: 0= Normal to Room Light Bone or Joint Aches: 2= Severe Diffuse Aches Runny Nose/ Eye Tearin= Runny Nose/Eyes GI Upset > 30mins: 0= None Tremor Observation of Outstretched Hands: 2= Slight Tremor Visible Yawning Observation: 2= >3x During Session Anxiety or Irritability: 2=Irritable/Anxious Goose Flesh Skin: 0=Smooth Skin COWS Score: 12 [facility] Progress Note (SOAP) Subjective: sweats tired body aches shakes interrupted sleep Objective: 07/02/16 11:22 Vital Signs Temperature 97.5 F L 07/02/16 09:59 Pulse Rate 66 07/02/16 09:59 Respiratory Rate 18 07/02/16 09:59 Blood Pressure 107/70 07/02/16 09:59 O2 Sat by Pulse Oximetry (%) Laboratory Tests 07/01/16 07/02/16 07/02/16 20:30 07:50 07:50 WBC 5.2 RBC 4.14 Hgb 12.0 Hct 36.8 MCV 88.8 MCHC 32.5 RDW 14.1 Plt Count 208 MPV 9.2 D Sodium 146 H Potassium 4.1 Chloride 107 Carbon Dioxide 34 H Anion Gap 5 L BUN 12 D Creatinine 0.7 Creat Clearance w eGFR > 60 Random Glucose 105 Calcium 9.0 Total Bilirubin 0.3 D AST 81 H D ALT 131 H D Alkaline Phosphatase 49 Total Protein 6.3 L Albumin 3.5 Urine Color Red Urine Appearance Cloudy Urine pH 6.0 Ur Specific [place] 1.025 Urine Protein 1+ H Urine Glucose (UA) Negative Urine Ketones Trace H Urine Blood Negative Urine Nitrite Negative Urine Bilirubin 2.0 Urine Urobilinogen 4.0 e.u/dl H Ur Leukocyte Esterase 1+ H Urine RBC 7 Urine WBC 39 Ur Epithelial Cells Few Urine Bacteria Rare Urine Mucus Many repeat u/a awake/alert ambulating no acute distress Assessment: 07/02/16 11:24 withdrawal sx Plan: continue detox increase fluids repeat u/a
--- NOTE | 2016-07-02 15:01 | EKG ---
Test Reason : Blood Pressure : / mmHG Vent. Rate : 063 BPM Atrial Rate : 063 BPM P-R Int : 094 ms QRS Dur : 094 ms QT Int : 402 ms P-R-T Axes : 023 023 018 degrees QTc Int : 411 ms SINUS RHYTHM WITH SHORT MN INCOMPLETE RIGHT BUNDLE BRANCH BLOCK ABNORMAL ECG WHEN COMPARED WITH ECG OF 07-JUN-2016 15:26, T WAVE INVERSION NOW EVIDENT IN ANTERIOR LEADS Confirmed by MANJIT DEL ROSARIO MD ([id number]) on 07/02/2016 3:01:41 PM Referred By: Confirmed By:MANJIT DEL ROSARIO MD
[2016-07-02] MEDS: diphenhydrAMINE HCL 50 MG CAPSULE PO PRN (22:57)
[2016-07-02] MEDS: THIAMINE HCL 100 MG TABLET (FP) PO SCH (22:58)
[2016-07-03 11:10] LABS: URINE APPEARANCE CLOUDY; URINE BILIRUBIN NEGATIVE (NEGATIVE); URINE BLOOD NEGATIVE (NEGATIVE); URINE COLOR YELLOW; URINE GLUCOSE (UA) NEGATIVE (NEGATIVE); URINE KETONE NEGATIVE (NEGATIVE); URINE NITRITE POSITIVE (NEGATIVE); URINE UROBILINOGEN 2.0 E.U/dl E.U./dl (0.2-1.0)
[2016-07-03 11:23] LABS: URINE LEUK ESTERASE 3+ (NEGATIVE); URINE PROTEIN 1+ (NEGATIVE)
[2016-07-03 11:25] LABS: URINE MUCUS MANY; URINE RBC 4 /hpf (0-3); URINE WBC 814 /hpf (3-5)
[2016-07-03] MEDS: METHADONE HCL 5 MG TABLET (FOR DETOX USE ONLY) PO SCH (11:39)
[2016-07-03] MEDS: PRENATAL VITAMINS W/ FOLIC ACID TABLET (FP) PO SCH (11:39)
[2016-07-03] MEDS: diazePAM 5 MG TABLET PO SCH ×2 (11:39→23:10)
[2016-07-03] MEDS: NICOTINE 21 MG/24 HOURS TOPICAL PATCH TD SCH (11:40)
--- NOTE | 2016-07-03 11:46 | PN ---
[facility] CIWA - CIWA Score Nausea/Vomitin Muscle Tremors: 2 Anxiety: 3 Agitation: 2 Paroxysmal Sweats: 3 Orientation: 0-Oriented Tacttile Disturbances: 2-Mild Itch/Numbness/Burn Auditory Disturbances: 0-None Visual Disturbances: 0-None Headache: 0-None Present CIWA-Ar Total Score: 14 S COWS - Scale Resting Pulse: 0= [place] 80 or Below Sweatin=Flushed/Facial Moisture Restless Observation: 1= Difficult to Sit Still Pupil Size: 1= Pupils >than Normal Bone or Joint Aches: 2= Severe Diffuse Aches Runny Nose/ Eye Tearin= Nasal Congestion GI Upset > 30mins: 1= Stomach Cramp Tremor Observation of Outstretched Hands: 1= Tremor [place], Not Seen Yawning Observation: 0= None Anxiety or Irritability: 2=Irritable/Anxious Goose Flesh Skin: 0=Smooth Skin COWS Score: 11 S Progress Note (SOAP) Subjective: tired, interrupted sleep, sweats, soreness Objective: 07/03/16 11:41 Vital Signs Temperature 97.7 F 07/03/16 10:28 Pulse Rate 73 07/03/16 10:28 Respiratory Rate 18 07/03/16 10:28 Blood Pressure 102/68 07/03/16 10:28 O2 Sat by Pulse Oximetry (%) Laboratory Tests 07/01/16 07/02/16 07/02/16 20:30 07:50 07:50 WBC 5.2 RBC 4.14 Hgb 12.0 Hct 36.8 MCV 88.8 MCHC 32.5 RDW 14.1 Plt Count 208 MPV 9.2 D Sodium 146 H Potassium 4.1 Chloride 107 Carbon Dioxide 34 H Anion Gap 5 L BUN 12 D Creatinine 0.7 Creat Clearance w eGFR > 60 Random Glucose 105 Calcium 9.0 Total Bilirubin 0.3 D AST 81 H D ALT 131 H D Alkaline Phosphatase 49 Total Protein 6.3 L Albumin 3.5 Urine Color Red Urine Appearance Cloudy Urine pH 6.0 Ur Specific [place] 1.025 Urine Protein 1+ H Urine Glucose (UA) Negative Urine Ketones Trace H Urine Blood Negative Urine Nitrite Negative Urine Bilirubin 2.0 Urine Urobilinogen 4.0 e.u/dl H Ur Leukocyte Esterase 1+ H Urine RBC 7 Urine WBC 39 Ur Epithelial Cells Few Urine Bacteria Rare Urine Mucus Many RPR Titer 07/02/16 07/03/16 07:50 10:00 WBC RBC Hgb Hct MCV MCHC RDW Plt Count MPV Sodium Potassium Chloride Carbon Dioxide Anion Gap BUN Creatinine Creat Clearance w eGFR Random Glucose Calcium Total Bilirubin AST ALT Alkaline Phosphatase Total Protein Albumin Urine Color Yellow Urine Appearance Cloudy Urine pH 6.0 Ur Specific [place] 1.018 Urine Protein 1+ H Urine Glucose (UA) Negative Urine Ketones Negative Urine Blood Negative Urine Nitrite Positive Urine Bilirubin Negative Urine Urobilinogen 2.0 e.u/dl H Ur Leukocyte Esterase 3+ H D Urine RBC 4 Urine WBC 814 Ur Epithelial Cells Moderate Urine Bacteria Urine Mucus Many RPR Titer Nonreactive pt aox3 in nad lying in bed 07/03/16 11:45 Assessment: 07/03/16 11:42 withdrawal sx's 07/03/16 11:46 Plan: cont. detox increase fluids motrin prn levaquin 500mg /d x 3 u/a cx
[2016-07-03] MEDS ORDERED: LEVOFLOXACIN 500 MG TABLET (FP) PO ONE ×2 (11:47→14:30)
[2016-07-03] MEDS: THIAMINE HCL 100 MG TABLET (FP) PO SCH (23:10)
[2016-07-04] MEDS: LEVOFLOXACIN 500 MG TABLET (FP) PO SCH (05:39)
[2016-07-04] MEDS: diazePAM 5 MG TABLET PO SCH ×2 (11:03→22:49)
[2016-07-04] MEDS: PRENATAL VITAMINS W/ FOLIC ACID TABLET (FP) PO SCH (11:03)
[2016-07-04] MEDS: METHADONE HCL 5 MG TABLET (FOR DETOX USE ONLY) PO SCH (11:04)
[2016-07-04] MEDS: NICOTINE 21 MG/24 HOURS TOPICAL PATCH TD SCH (11:05)
--- NOTE | 2016-07-04 12:11 | PN ---
[facility] Progress Note (SOAP) Subjective: sweats anxious body aches Objective: 07/04/16 12:10 Vital Signs Temperature 97.7 F 07/04/16 10:17 Pulse Rate 87 07/04/16 10:17 Respiratory Rate 16 07/04/16 10:17 Blood Pressure 101/55 07/04/16 10:17 O2 Sat by Pulse Oximetry (%) awake/alert ambulating no acute distress Assessment: 07/04/16 12:11 withdrawal sx Plan: continue detox increase fluids tylenol/motrin prn
[2016-07-04] MEDS: GABAPENTIN 300 MG CAPSULE (FP) PO SCH ×2 (13:39→22:49)
[2016-07-04] MEDS ORDERED: lamoTRIgine 100 MG TABLET (FP) PO SCH (22:00)
[2016-07-04] MEDS ORDERED: lamoTRIgine 25 MG TABLET PO SCH (22:00)
[2016-07-04] MEDS: lamoTRIgine 25 MG TABLET PO SCH (22:48)
[2016-07-04] MEDS: THIAMINE HCL 100 MG TABLET (FP) PO SCH (22:49)
[2016-07-04] MEDS: NICOTINE POLACRILEX 2 MG GUM BUC PRN (22:51)
[2016-07-05] MEDS: LEVOFLOXACIN 500 MG TABLET (FP) PO SCH (06:16)
[2016-07-05] MEDS: GABAPENTIN 300 MG CAPSULE (FP) PO SCH ×3 (06:17→22:46)
[2016-07-05] MEDS ORDERED: diazePAM 5 MG TABLET PO SCH (10:00)
[2016-07-05] MEDS ORDERED: METHADONE HCL 10 MG TABLET (FOR DETOX USE ONLY) PO SCH (10:00)
[2016-07-05] MEDS: PRENATAL VITAMINS W/ FOLIC ACID TABLET (FP) PO SCH (10:12)
[2016-07-05] MEDS: NICOTINE 21 MG/24 HOURS TOPICAL PATCH TD SCH (10:13)
--- NOTE | 2016-07-05 12:04 | PN ---
[facility] Progress Note (SOAP) Subjective: interrupted sleep, constipation Assessment: 07/05/16 12:03 Vital Signs Temperature 97.7 F 07/05/16 10:17 Pulse Rate 112 H 07/05/16 10:17 Respiratory Rate 18 07/05/16 10:17 Blood Pressure 101/66 07/05/16 10:17 O2 Sat by Pulse Oximetry (%) Laboratory Tests 07/01/16 07/02/16 07/02/16 20:30 07:50 07:50 WBC 5.2 RBC 4.14 Hgb 12.0 Hct 36.8 MCV 88.8 MCHC 32.5 RDW 14.1 Plt Count 208 MPV 9.2 D Sodium 146 H Potassium 4.1 Chloride 107 Carbon Dioxide 34 H Anion Gap 5 L BUN 12 D Creatinine 0.7 Creat Clearance w eGFR > 60 Random Glucose 105 Calcium 9.0 Total Bilirubin 0.3 D AST 81 H D ALT 131 H D Alkaline Phosphatase 49 Total Protein 6.3 L Albumin 3.5 Urine Color Red Urine Appearance Cloudy Urine pH 6.0 Ur Specific [place] 1.025 Urine Protein 1+ H Urine Glucose (UA) Negative Urine Ketones Trace H Urine Blood Negative Urine Nitrite Negative Urine Bilirubin 2.0 Urine Urobilinogen 4.0 e.u/dl H Ur Leukocyte Esterase 1+ H Urine RBC 7 Urine WBC 39 Ur Epithelial Cells Few Urine Bacteria Rare Urine Mucus Many RPR Titer 07/02/16 07/03/16 07:50 10:00 WBC RBC Hgb Hct MCV MCHC RDW Plt Count MPV Sodium Potassium Chloride Carbon Dioxide Anion Gap BUN Creatinine Creat Clearance w eGFR Random Glucose Calcium Total Bilirubin AST ALT Alkaline Phosphatase Total Protein Albumin Urine Color Yellow Urine Appearance Cloudy Urine pH 6.0 Ur Specific [place] 1.018 Urine Protein 1+ H Urine Glucose (UA) Negative Urine Ketones Negative Urine Blood Negative Urine Nitrite Positive Urine Bilirubin Negative Urine Urobilinogen 2.0 e.u/dl H Ur Leukocyte Esterase 3+ H D Urine RBC 4 Urine WBC 814 Ur Epithelial Cells Moderate Urine Bacteria Urine Mucus Many RPR Titer Nonreactive pt aox3 in nad ambulating Plan: withdrawal sx; constipation cont detox increase fluids d/c in am mom
[2016-07-05] MEDS ORDERED: LAMOTRIGINE 100 MG, LAMOTRIGINE 25 MG PO SCH (22:00)
[2016-07-05] MEDS: diphenhydrAMINE HCL 50 MG CAPSULE PO PRN (22:45)
[2016-07-05] MEDS: lamoTRIgine 25 MG TABLET PO SCH (22:46)
[2016-07-05] MEDS: THIAMINE HCL 100 MG TABLET (FP) PO SCH (22:46)
[2016-07-05] MEDS: NICOTINE POLACRILEX 2 MG GUM BUC PRN (22:47)
[2016-07-06] MEDS ORDERED: METHADONE HCL 5 MG TABLET (FOR DETOX USE ONLY) PO SCH (06:00)
[2016-07-06] MEDS: GABAPENTIN 300 MG CAPSULE (FP) PO SCH (06:25)
[2016-07-06 07:09] VITALS: BP 96/57; PULSE 83; TEMP 97.3
--- NOTE | 2016-07-06 09:21 | DS ---
[facility] Detox Discharge Summary Admission Date: 07/01/16 Discharge Date: 07/06/16 - History Present History: Cocaine Dependence, Opioid Dependence, Sedative Dependence, Pcp Dependence - Physical Exam Results Vital Signs: Vital Signs Temperature 97.3 F L 07/06/16 06:00 Pulse Rate 83 07/06/16 06:00 Respiratory Rate 16 07/06/16 06:00 Blood Pressure 96/57 07/06/16 06:00 O2 Sat by Pulse Oximetry (%) - Treatment Hospital Course: Detox Protocol Followed, Detoxed Safely, Responded well, Discharged Condition Good, Rehab Referral Accepted - Medication Discharge Medications: Ambulatory Orders Lamotrigine [Lamictal] 100 mg PO HS 11/25/15 Gabapentin [Neurontin -] 300 mg PO TID 06/07/16 Hydroxyzine Pamoate [Vistaril -] 1 - 2 cap PO BID PRN 06/07/16 Gabapentin 300 mg PO TID #90 ml 07/04/16 Gabapentin [Neurontin -] 300 mg PO TID #90 07/04/16 Lamotrigine [LaMICtal -] 100 mg PO HS #30 tablet 07/04/16 Lamotrigine [Lamictal -] 25 mg PO HS #30 tablet 07/04/16 - Diagnosis (1) Opioid dependence with withdrawal Current Visit: Yes Status: Chronic (2) Sedative, hypnotic or anxiolytic dependence with withdrawal, uncomplicated Current Visit: Yes Status: Chronic (3) Cocaine abuse Current Visit: Yes Status: Chronic (4) Nicotine dependence Current Visit: Yes Status: Chronic Qualifiers: Nicotine product type: cigarettes Substance use status: uncomplicated Qualified Code(s): F17.210 - Nicotine dependence, cigarettes, uncomplicated (5) PCP dependence Current Visit: Yes Status: Chronic (6) Substance induced mood disorder Current Visit: No Status: Acute (7) Insomnia Current Visit: No Status: Chronic (8) Mood disorder Current Visit: No Status: Chronic (9) Anxiety and depression Current Visit: No Status: Suspected - AMA Did Patient Leave Against Medical Advice: No
== END 2016-07-06 09:06 | disposition home or self-care (01) | DRG 773 ==
LOC: YASAS 09:22 → Y6N 13:01
PROVIDERS: ADMIT Internal Medicine; ATTEND Internal Medicine Addiction Medicine
PROC: HZ2ZZZZ Detoxification Services for Substance Abuse Treatment (ICD-10-PCS; principal; 2016-07-06)
DX: F11.23 Opioid dependence with withdrawal (principal); F13.230 Sedative, hypnotic or anxiolytic dependence with withdrawal, uncomplicated; F16.20 Hallucinogen dependence, uncomplicated; F17.210 Nicotine dependence, cigarettes, uncomplicated; F19.24 Other psychoactive substance dependence with psychoactive substance-induced mood disorder; F39 Unspecified mood [affective] disorder; F41.8 Other specified anxiety disorders; G47.00 Insomnia, unspecified
CPT/HCPCS: 36415; 80053; 81003; 81015; 85027; 86593; 93005; 93010

== ENCOUNTER 2016-08-16 08:41 | Inpatient (IN) | payer OTHER ==
[2016-08-16 10:34] VITALS: BMI 19.3
--- NOTE | 2016-08-16 13:19 | HP ---
COWS - Scale Resting Pulse: 0= [place] 80 or Below Sweatin= Chills/Flushing Restless Observation: 3= Extraneous Movement Pupil Size: 2= Moderately Dilated Bone or Joint Aches: 4=Acute Joint/Muscle Pain Runny Nose/ Eye Tearin= Nasal Congestion GI Upset > 30mins: 0= None Tremor Observation: 1= Tremor [place], Not Seen Yawning Observation: 2= >3x During Session Anxiety or Irritability: 1=Feels Anxious/Irritable Goose Flesh Skin: 0=Smooth Skin COWS Score: 15 Admission ROS S - HPI Chief Complaint: DETOX TX FOR HEROIN DEPENDENCE Allergies/Adverse Reactions: Allergies Allergy/AdvReac Type Severity Reaction Status Date / Time No Known Allergies Allergy Verified 08/16/16 11:46 History of Present Illness: 40 Y/O FEMALE WITH A HX OF HEROIN,XANAX,KLONPIN AND COCAINE DEPENDENCE SEEKING DETOX TX. PT HAS PREVIOUS EPISODES OF DRUG TX. Exam Limitations: No Limitations - Ebola screening Have you traveled outside of the country in the last 21 days: No Have you had contact with anyone from an Ebola affected area: No Have you been sick,other than usual withdrawal symptoms: No - Review of Systems Constitutional: Chills, Loss of Appetite, Night Sweats, Changes in sleep, Unintentional Wgt. Loss EENT: reports: Blurred Vision (WEARS GLASSES), Tearing, Nose Congestion, Dental Problems (ORAL SX(TOOTH EXTRACTION) 3 WEEKS DUE TO CRACK TOOTH) Respiratory: reports: No Symptoms reported Cardiac: reports: No Symptoms Reported GI: reports: Constipated, Diarrhea, Nausea, Poor Appetite, Poor Fluid Intake, Vomiting : reports: Burning (SOMRTIMES) Musculoskeletal: reports: Back Pain, Joint Pain, Muscle Pain Integumentary: reports: Bruising (IVD INJ SITES ON BACK OF BOTH HANDS) Neuro: reports: Headache, Tremors (DUE TO ANXIETY) Endocrine: reports: No Symptoms Reported Hematology: reports: No Symptoms Reported Psychiatric: reports: Orientated x3, Anxious Other Systems: Reviewed and Negative Patient History - Patient Medical History Hx Anemia: No Hx Asthma: No Hx Chronic Obstructive Pulmonary Disease (COPD): No Hx Cancer: No Hx Cardiac Disorders: No Hx Congestive Heart Failure: No Hx Hypertension: No Hx Hypercholesterolemia: No Hx Pacemaker: No HX Cerebrovascular Accident: No Hx Seizures: No Hx Dementia: No Hx Diabetes: No Hx Gastrointestinal Disorders: No Hx Liver Disease: No Hx Genitourinary Disorders: No Hx Sexually Transmitted Disorders: Yes (GENITAL HERPES) Hx Renal Disease (ESRD): No Hx Thyroid Disease: No Hx Human Immunodeficiency Virus (HIV): No (NEGATIVE HX) Hx Hepatitis C: Yes Hx Depression: No (HX ANXIETY DISORDER--LAMICTAL) Hx Suicide Attempt: No (DENIES) Hx Bipolar Disorder: No Hx Schizophrenia: No - Patient Surgical History Past Surgical History: Yes Hx Neurologic Surgery: No Hx Cataract Extraction: No Hx Cardiac Surgery: No Hx Lung Surgery: No Hx Breast Surgery: No Hx Breast Biopsy: No Hx Abdominal Surgery: No Hx Appendectomy: Yes (2003) Hx Genitourinary Surgery: Yes (URETHOTOMY IN 1998) Hx Section: No Hx Orthopedic Surgery: No Hx Hysterectomy: No Anesthesia Reaction: No - PPD History Previous Implant?: Yes Documented Results: Negative w/proof Implanted On Prior [facility] Admission?: Yes Date: 06/09/16 Results: 0 MM PPD to be Administered?: No - Reproductive History Patient is a Female of Child Bearing Age (11 -55 yrs old): Yes Last Menstrual Period: 08/11/16 Patient : No - Smoking Cessation Smoking history: Current some day smoker Have you smoked in the past 12 months: Yes Aproximately how many cigarettes per day: 2 Hx Chewing Tobacco Use: No Initiated information on smoking cessation: Yes 'Breaking Loose' booklet given: 08/16/16 - Substance & Tx. History Hx Substance Use: Yes (HEROIN/COCAINE/XANAX/KLONOPIN) Substance Use Type: Cocaine, Heroin, Tranquilizers Hx Substance Use Treatment: Yes ([facility]-DETOX) - Substances Abused Heroin Route: Injection Frequency: Daily Amount used: 5 BAGS Age of first use: 28 Date of Last Use: 08/15/16 KLONOPIN OR XANAX Route: Oral Frequency: Daily Amount used: 4MG Age of first use: 17 Date of Last Use: 08/14/16 Cocaine Route: Smoking Frequency: 1-3 times last 30 days (USED JUST OVER LAST ONE WEEK) Amount used: $10 Age of first use: 20 Date of Last Use: 08/13/16 Family Disease History - Family Disease History Family Disease History: Heart Disease: Mother (HTN,drugs) Admission Physical Exam BHS - Vital Signs Vital Signs: Vital Signs - 24 hr 08/16/16 10:29 Temperature 97 F L Pulse Rate 77 Respiratory 20 Rate Blood Pressure 95/61 - Physical General Appearance: Yes: Moderate Distress, Irritable, Anxious HEENTM: Yes: EOMI, Normocephalic, KRISTI, Pharynx Normal Respiratory: Yes: Chest Non-Tender, Lungs Clear, Normal Breath Sounds, No Respiratory Distress Neck: Yes: No masses,lesions,Nodules, Supple, Trachea in good position Breast: Yes: Breast Exam Deferred Cardiology: Yes: Regular Rhythm, Regular Rate, S1, S2 Abdominal: Yes: Normal Bowel Sounds, Non Tender, Flat, Soft Genitourinary: Yes: Other (N/C) Back: Yes: Within Normal Limits Musculoskeletal: Yes: full range of Motion, Gait Steady Extremities: Yes: Normal Range of Motion, Non-Tender Neurological: Yes: cloth bin packer II-XII NML intact, Fully Oriented, Alert, Motor Strength 5/5 Integumentary: Yes: Dry, Warm, Track [place]iz[place] (IVD INJ SITES ON BACK OF BOTH HANDS- -NO REDNESS OR SWELLING) Lymphatic: Yes: Within Normal Limits - Diagnostic (1) Nicotine dependence Current Visit: Yes Status: Acute Qualifiers: Nicotine product type: cigarettes Substance use status: in withdrawal Qualified Code(s): F17.213 - Nicotine dependence, cigarettes, with withdrawal (2) Opioid dependence with withdrawal Current Visit: Yes Status: Acute Cleared for Admission [facility] - Detox or Rehab [facility] Level of Care: Medically Managed Detox Regimen/Protocol: Methadone [facility] Breath Alcohol Content Breath Alcohol Content: 0 Urine Pregancy Test - Result Urine Test Results: Negative- NO Line Present Urine Drug Screen - Results Drug Screen Negative: No Urine Drug Screen Results: ASHTYN-Cocaine, OPI-Opiates
[2016-08-16] MEDS ORDERED: hydrOXYzine PAMOATE 25 MG CAPSULE (FP) PO PRN (13:31)
[2016-08-16] MEDS ORDERED: LOPERAMIDE HCL 2 MG CAPSULE PO PRN (13:31)
[2016-08-16] MEDS ORDERED: IBUPROFEN 400 MG TABLET (FP) PO PRN (13:31)
[2016-08-16] MEDS ORDERED: MAG HYDROX/AL HYDROX/SIMETH 30 ML UNIT-DOSE CUP PO PRN (13:31)
[2016-08-16] MEDS ORDERED: MAGNESIUM HYDROX 2400MG/30ML ORAL SUSPENSION 30 ML CUP PO PRN (13:31)
[2016-08-16] MEDS ORDERED: ACETAMINOPHEN 325 MG TABLET (FP) PO PRN (13:31)
[2016-08-16] MEDS ORDERED: diphenhydrAMINE HCL 50 MG CAPSULE PO PRN (13:31)
[2016-08-16] MEDS ORDERED: guaiFENesin/D-METHORPHAN HB 10 ML UNIT-DOSE CUPS PO PRN (13:31)
[2016-08-16] MEDS ORDERED: MAGNESIUM CITRATE 300 ML BOTTLE PO PRN (13:31)
[2016-08-16] MEDS ORDERED: P-EPHED 60MG/TRIPROLIDI 2.5MG TABLET PO PRN (13:31)
[2016-08-16] MEDS ORDERED: MENTHOL/PHENOL 1 EACH UD MM PRN (13:31)
[2016-08-16] MEDS ORDERED: METHADONE HCL 10 MG TABLET (FOR DETOX USE ONLY) PO ONE ×2 (14:02→23:00)
--- NOTE | 2016-08-16 14:05 | CONSULT ---
[facility] Psychiatric Consult - Data Date of interview: 08/16/16 Admission source: [facility] Identifying data: This is 40 years old female with no psychiatric hospitalization history intoxicated with: Cocaine, Heroin and Benzodazepins Substance Abuse History: - Smoking Cessation. Smoking history: Current some day smoker. Have you smoked in the past 12 months: Yes. Aproximately how many cigarettes per day: 2. Hx Chewing Tobacco Use: No. Initiated information on smoking cessation: Yes. 'Breaking Loose' booklet given: 08/16/16. - Substance & Tx. History. Hx Substance Use: Yes (HEROIN/COCAINE/XANAX/KLONOPIN). Substance Use Type: Cocaine, Heroin, Tranquilizers. Hx Substance Use Treatment : Yes ([facility]-DETOX). - Substances Abused. Heroin. Route: Injection. Frequency: Daily. Amount used: 5 BAGS. Age of first use: 28. Date of Last Use : 08/15/16. KLONOPIN OR XANAX. Route: Oral. Frequency: Daily. Amount used : 4MG. Age of first use: 17. Date of Last Use: 08/14/16. Cocaine. Route: Smoking. Frequency: 1-3 times last 30 days (USED JUST OVER LAST ONE WEEK). Amount used: $10. Age of first use: 20. Date of Last Use: 08/13/16 Medical History: Denies significant medical problem Psychiatric History: Patient reports history of anxiety and depression,. mild mood swings, reports taking prior to admission: Lamictal 125mg po qhs. Gabapentin 300mg po tid Physical/Sexual Abuse/Trauma History: Denies Additional Comment: Lamictal 125mg po qhs. Gabapentin 300mg po tid Mental Status Exam - Mental Status Exam Alert and Oriented to: Person Cognitive Function: Fair Patient Appearance: Well Groomed Mood: Apprehensive Patient Behavior: Cooperative Speech Pattern: Appropriate Voice Loudness: Normal Thought Process: Goal Oriented Thought Disorder: Being Controlled Hallucinations: Denies Suicidal Ideation: Denies Homicidal Ideation: Denies Insight/Judgement: Fair Sleep: Difficulty falling asleep Appetite: Fair Muscle strength/Tone: Normal Gait/Station: Normal Additional Comments: Lamictal 125mg po qhs. Gabapentin 300mg po tid Psychiatric Findings - Problem List ([place] 1, 2,3) (1) Nicotine dependence Current Visit: Yes Status: Acute Qualifiers: Nicotine product type: cigarettes Substance use status: in withdrawal Qualified Code(s): F17.213 - Nicotine dependence, cigarettes, with withdrawal (2) Opioid dependence with withdrawal Current Visit: Yes Status: Acute (3) Substance induced mood disorder Current Visit: No Status: Acute (4) Cocaine abuse Current Visit: No Status: Chronic (5) Mood disorder Current Visit: No Status: Chronic Comment: History by patient. (6) PCP dependence Current Visit: No Status: Chronic (7) Sedative, hypnotic or anxiolytic dependence with withdrawal, uncomplicated Current Visit: No Status: Chronic (8) Drug-induced mood disorder Current Visit: Yes Status: Acute - Initial Treatment Plan Initial Treatment Plan: Lamictal 125mg po qhs. Gabapentin 300mg po tid
[2016-08-16] MEDS: diazePAM 5 MG TABLET PO PRN (14:25)
[2016-08-16] MEDS: NICOTINE 14 MG/24 HOURS TOPICAL PATCH TD SCH (14:28)
[2016-08-16 20:12] LABS: URINE APPEARANCE CLEAR; URINE BILIRUBIN NEGATIVE (NEGATIVE); URINE COLOR AMBER; URINE GLUCOSE (UA) NEGATIVE (NEGATIVE); URINE KETONE NEGATIVE (NEGATIVE); URINE NITRITE NEGATIVE (NEGATIVE); URINE PROTEIN NEGATIVE (NEGATIVE); URINE UROBILINOGEN 4.0 E.U/dl E.U./dl (0.2-1.0)
[2016-08-16 21:18] LABS: URINE BLOOD 1+ (NEGATIVE); URINE LEUK ESTERASE 1+ (NEGATIVE)
[2016-08-16] MEDS: THIAMINE HCL 100 MG TABLET (FP) PO SCH (22:05)
[2016-08-16] MEDS: lamoTRIgine 25 MG TABLET PO SCH (22:05)
[2016-08-16] MEDS: GABAPENTIN 300 MG CAPSULE (FP) PO SCH (22:05)
[2016-08-16] MEDS: lamoTRIgine 100 MG TABLET (FP) PO SCH (22:06)
[2016-08-16 22:54] LABS: CALCIUM OXALATE CRYSTALS FEW /hpf (NONE SEEN); URINE BACTERIA RARE /hpf (NONE SEEN); URINE RBC 15 /hpf (0-3); URINE WBC 7 /hpf (3-5)
[2016-08-17] MEDS: GABAPENTIN 300 MG CAPSULE (FP) PO SCH ×3 (05:59→22:46)
[2016-08-17] MEDS: diazePAM 5 MG TABLET PO PRN ×4 (05:59→22:45)
[2016-08-17] MEDS ORDERED: METHADONE HCL 10 MG TABLET (FOR DETOX USE ONLY) PO ONE (10:00)
[2016-08-17 10:25] LABS: MCH 29.1 pg (25.7-33.7); MCHC 32.6 g/dl (32.0-36.0); MEAN CELL VOLUME 89.3 fl (80-96); MEAN PLT VOLUME 10.2 fl (7.5-11.1); PLATELET COUNT 244 K/MM3 (134-434); RDW 15.7 % (11.6-15.6); WHITE BLOOD COUNT 5.5 K/mm3 (4.0-10.0)
[2016-08-17 10:33] LABS: ALBUMIN 3.8 g/dl (3.4-5.0); ALK PHOS 146 U/L (45-117); ANION GAP 8 (8-16); BILIRUBIN,TOTAL 0.6 mg/dL (0.2-1.0); CALCIUM 9.1 mg/dL (8.5-10.1); CO2 34 mmol/L (21-32); CREATININE 0.7 mg/dL (0.55-1.02); GLUCOSE,RANDOM 143 mg/dL (74-106); SGOT/AST 338 U/L (15-37); TOT PROT 7.1 g/dl (6.4-8.2)
[2016-08-17] MEDS: PRENATAL VITAMINS W/ FOLIC ACID TABLET (FP) PO SCH (10:38)
[2016-08-17] MEDS: NICOTINE POLACRILEX 2 MG GUM BUC PRN ×2 (10:38→22:48)
[2016-08-17] MEDS: NICOTINE 14 MG/24 HOURS TOPICAL PATCH TD SCH (10:39)
[2016-08-17 10:42] LABS: SGPT/ALT 602 U/L (12-78)
--- NOTE | 2016-08-17 11:35 | PN ---
BHS COWS - Scale Resting Pulse: 0= [place] 80 or Below Sweatin=Flushed/Facial Moisture Restless Observation: 1= Difficult to Sit Still Pupil Size: 0= Normal to Room Light Bone or Joint Aches: 2= Severe Diffuse Aches Runny Nose/ Eye Tearin= Nasal Congestion GI Upset > 30mins: 0= None Tremor Observation of Outstretched Hands: 2= Slight Tremor Visible Yawning Observation: 2= >3x During Session Anxiety or Irritability: 2=Irritable/Anxious Goose Flesh Skin: 0=Smooth Skin COWS Score: 12 [facility] Progress Note (SOAP) Subjective: shakes lots of sweats tired body aches Objective: 08/17/16 11:40 Vital Signs Temperature 96.0 F L 08/17/16 10:56 Pulse Rate 75 08/17/16 10:56 Respiratory Rate 18 08/17/16 10:56 Blood Pressure 108/64 08/17/16 10:56 O2 Sat by Pulse Oximetry (%) Laboratory Tests 08/16/16 08/17/16 08/17/16 14:00 06:00 06:00 WBC 5.5 RBC 4.22 Hgb 12.3 Hct 37.7 MCV 89.3 MCHC 32.6 RDW 15.7 H D Plt Count 244 MPV 10.2 D Sodium 143 Potassium 3.7 Chloride 101 Carbon Dioxide 34 H Anion Gap 8 BUN 12 Creatinine 0.7 Creat Clearance w eGFR > 60 Random Glucose 143 H D Calcium 9.1 Total Bilirubin 0.6 D AST 338 H D ALT 602 H D Alkaline Phosphatase 146 H D Total Protein 7.1 Albumin 3.8 Urine Color Kelli Urine Appearance Clear Urine pH 5.0 Ur Specific [place] 1.024 Urine Protein Negative Urine Glucose (UA) Negative Urine Ketones Negative Urine Blood 1+ H Urine Nitrite Negative Urine Bilirubin Negative Urine Urobilinogen 4.0 e.u/dl H Ur Leukocyte Esterase 1+ H D Urine RBC 15 Urine WBC 7 Ur Epithelial Cells Moderate Calcium Oxalate Crystal Few Urine Bacteria Rare elevated enzymes repeat ast/alt d/c tylenol awake/alert ambulating no acute distress Assessment: 08/17/16 11:46 withdrawal sx Plan: continue detox increase fluids f/u pending labs
--- NOTE | 2016-08-17 13:48 | EKG ---
Test Reason : Blood Pressure : / mmHG Vent. Rate : 058 BPM Atrial Rate : 058 BPM P-R Int : 090 ms QRS Dur : 094 ms QT Int : 418 ms P-R-T Axes : 027 033 042 degrees QTc Int : 410 ms SINUS BRADYCARDIA WITH SHORT DC INCOMPLETE RBBB Confirmed by MARY JANE PAYAN MD ([id number]) on 08/17/2016 1:48:03 PM Referred By: Confirmed By:MARY JANE PAYAN MD
[2016-08-17] MEDS: THIAMINE HCL 100 MG TABLET (FP) PO SCH (22:46)
[2016-08-17] MEDS: lamoTRIgine 100 MG TABLET (FP) PO SCH (22:46)
[2016-08-17] MEDS: lamoTRIgine 25 MG TABLET PO SCH (22:46)
[2016-08-18] MEDS: GABAPENTIN 300 MG CAPSULE (FP) PO SCH ×3 (05:29→22:33)
[2016-08-18] MEDS: diazePAM 5 MG TABLET PO PRN (05:29)
[2016-08-18] MEDS ORDERED: METHADONE HCL 5 MG TABLET (FOR DETOX USE ONLY) PO ONE (10:00)
[2016-08-18] MEDS: PRENATAL VITAMINS W/ FOLIC ACID TABLET (FP) PO SCH (10:46)
[2016-08-18] MEDS: NICOTINE 14 MG/24 HOURS TOPICAL PATCH TD SCH (10:47)
[2016-08-18] MEDS: NICOTINE POLACRILEX 2 MG GUM BUC PRN (10:48)
[2016-08-18 11:09] LABS: INR 1.15 (0.82-1.09); PROTHROMBIN TIME (PATIENT) 12.7 SEC (9.98-11.88)
[2016-08-18 11:24] LABS: SGOT/AST 369 U/L (15-37)
[2016-08-18 11:31] LABS: SGPT/ALT 549 U/L (12-78)
--- NOTE | 2016-08-18 13:06 | PN ---
S COWS - Scale Resting Pulse: 1= [place] 81-100 Sweatin= Chills/Flushing Restless Observation: 3= Extraneous Movement Pupil Size: 1= Pupils >than Normal Bone or Joint Aches: 2= Severe Diffuse Aches Runny Nose/ Eye Tearin= Runny Nose/Eyes GI Upset > 30mins: 2= Nausea/Diarrhea Tremor Observation of Outstretched Hands: 2= Slight Tremor Visible Yawning Observation: 1= 1-2x During Session Anxiety or Irritability: 2=Irritable/Anxious Goose Flesh Skin: 0=Smooth Skin COWS Score: 17 S Progress Note (SOAP) Subjective: ALERT,IRRITABLE,ANXIOUS,INTERRUPTED SLEEP,TREMOR,PAIN IN THE BODY AND BACK Objective: 08/18/16 13:03 Vital Signs Temperature 97.9 F 08/18/16 06:48 Pulse Rate 81 08/18/16 11:07 Respiratory Rate 18 08/18/16 11:07 Blood Pressure 92/63 08/18/16 11:07 O2 Sat by Pulse Oximetry (%) EKG SINUS BRADYCARDIA 58/MIN NO CHEST PAIN,NO SOB,NO DIZZINESS Laboratory Last Values WBC 5.5 K/mm3 (4.0-10.0) 08/17/16 06:00 RBC 4.22 M/mm3 (3.60-5.2) 08/17/16 06:00 Hgb 12.3 GM/dL (10.7-15.3) 08/17/16 06:00 Hct 37.7 % (32.4-45.2) 08/17/16 06:00 MCV 89.3 fl (80-96) 08/17/16 06:00 MCHC 32.6 g/dl (32.0-36.0) 08/17/16 06:00 RDW 15.7 % (11.6-15.6) H D 08/17/16 06:00 Plt Count 244 K/MM3 (134-434) 08/17/16 06:00 MPV 10.2 fl (7.5-11.1) D 08/17/16 06:00 INR 1.15 (0.82-1.09) H 08/18/16 07:40 Sodium 143 mmol/L (136-145) 08/17/16 06:00 Potassium 3.7 mmol/L (3.5-5.1) 08/17/16 06:00 Chloride 101 mmol/L (98-107) 08/17/16 06:00 Carbon Dioxide 34 mmol/L (21-32) H 08/17/16 06:00 Anion Gap 8 (8-16) 08/17/16 06:00 BUN 12 mg/dL (7-18) 08/17/16 06:00 Creatinine 0.7 mg/dL (0.55-1.02) 08/17/16 06:00 Creat Clearance w eGFR > 60 (>60) 08/17/16 06:00 Random Glucose 143 mg/dL (74-106) H D 08/17/16 06:00 Calcium 9.1 mg/dL (8.5-10.1) 08/17/16 06:00 Total Bilirubin 0.6 mg/dL (0.2-1.0) D 08/17/16 06:00 AST 369 U/L (15-37) H 08/18/16 07:50 ALT 549 U/L (12-78) H 08/18/16 07:50 Alkaline Phosphatase 146 U/L (45-117) H D 08/17/16 06:00 Total Protein 7.1 g/dl (6.4-8.2) 08/17/16 06:00 Albumin 3.8 g/dl (3.4-5.0) 08/17/16 06:00 Urine Color Kelli 08/16/16 14:00 Urine Appearance Clear 08/16/16 14:00 Urine pH 5.0 (5.0-8.0) 08/16/16 14:00 Ur Specific [place] 1.024 (1.001-1.035) 08/16/16 14:00 Urine Protein Negative (NEGATIVE) 08/16/16 14:00 Urine Glucose (UA) Negative (NEGATIVE) 08/16/16 14:00 Urine Ketones Negative (NEGATIVE) 08/16/16 14:00 Urine Blood 1+ (NEGATIVE) H 08/16/16 14:00 Urine Nitrite Negative (NEGATIVE) 08/16/16 14:00 Urine Bilirubin Negative (NEGATIVE) 08/16/16 14:00 Urine Urobilinogen 4.0 e.u/dl E.U./dl (0.2-1.0) H 08/16/16 14:00 Ur Leukocyte Esterase 1+ (NEGATIVE) H D 08/16/16 14:00 Urine RBC 15 /hpf (0-3) 08/16/16 14:00 Urine WBC 7 /hpf (3-5) 08/16/16 14:00 Ur Epithelial Cells Moderate /hpf (FEW) 08/16/16 14:00 Calcium Oxalate Crystal Few /hpf (NONE SEEN) 08/16/16 14:00 Urine Bacteria Rare /hpf (NONE SEEN) 08/16/16 14:00 RPR Titer Nonreactive (NONREACTIVE) 08/17/16 06:00 Assessment: 08/18/16 13:05 WITHDRAWAL SYMPTOM Plan: CONTINUE DETOX,INITIAL GLUCOSE IS 143,BGM MONITORING
[2016-08-18] MEDS: lamoTRIgine 100 MG TABLET (FP) PO SCH (22:33)
[2016-08-18] MEDS: THIAMINE HCL 100 MG TABLET (FP) PO SCH (22:33)
[2016-08-18] MEDS: lamoTRIgine 25 MG TABLET PO SCH (22:33)
[2016-08-19] MEDS: GABAPENTIN 300 MG CAPSULE (FP) PO SCH ×3 (06:39→22:10)
[2016-08-19] MEDS ORDERED: METHADONE HCL 5 MG TABLET (FOR DETOX USE ONLY) PO ONE (10:00)
[2016-08-19] MEDS: PRENATAL VITAMINS W/ FOLIC ACID TABLET (FP) PO SCH (10:29)
[2016-08-19] MEDS: NICOTINE 14 MG/24 HOURS TOPICAL PATCH TD SCH (10:29)
[2016-08-19] MEDS: NICOTINE POLACRILEX 2 MG GUM BUC PRN (10:31)
--- NOTE | 2016-08-19 14:01 | PN ---
BHS Progress Note (SOAP) Subjective: ALERT,IRRITABLE,ANXIOUS,INTERRUPTED SLEEP,PAIN IN THE BODY Objective: 08/19/16 14:00 Vital Signs Temperature 97.5 F L 08/19/16 10:25 Pulse Rate 74 08/19/16 10:25 Respiratory Rate 18 08/19/16 10:25 Blood Pressure 98/61 08/19/16 10:25 O2 Sat by Pulse Oximetry (%) Assessment: 08/19/16 14:00 WITHDRAWAL SYMPTOM Plan: CONTINUE DETOX
[2016-08-19] MEDS: lamoTRIgine 25 MG TABLET PO SCH (22:10)
[2016-08-19] MEDS: THIAMINE HCL 100 MG TABLET (FP) PO SCH (22:10)
[2016-08-19] MEDS: lamoTRIgine 100 MG TABLET (FP) PO SCH (22:10)
[2016-08-20] MEDS: GABAPENTIN 300 MG CAPSULE (FP) PO SCH ×3 (07:12→22:12)
[2016-08-20] MEDS ORDERED: METHADONE HCL 10 MG TABLET (FOR DETOX USE ONLY) PO ONE (10:00)
--- NOTE | 2016-08-20 10:14 | PN ---
BHS Progress Note (SOAP) Subjective: feel much better little anxious Objective: 08/20/16 10:13 Vital Signs Temperature 97.2 F L 08/20/16 06:00 Pulse Rate 64 08/20/16 06:00 Respiratory Rate 16 08/20/16 06:00 Blood Pressure 92/55 08/20/16 06:00 O2 Sat by Pulse Oximetry (%) awake/alert ambulating no acute distress Assessment: 08/20/16 10:14 withdrawal sx Plan: continue detox increase fluids d/c in am
[2016-08-20] MEDS: PRENATAL VITAMINS W/ FOLIC ACID TABLET (FP) PO SCH (10:36)
[2016-08-20] MEDS: NICOTINE 14 MG/24 HOURS TOPICAL PATCH TD SCH (10:36)
[2016-08-20] MEDS: lamoTRIgine 100 MG TABLET (FP) PO SCH (22:12)
[2016-08-20] MEDS: lamoTRIgine 25 MG TABLET PO SCH (22:12)
[2016-08-20] MEDS: THIAMINE HCL 100 MG TABLET (FP) PO SCH (22:12)
[2016-08-21] MEDS ORDERED: METHADONE HCL 5 MG TABLET (FOR DETOX USE ONLY) PO ONE (06:00)
[2016-08-21] MEDS: GABAPENTIN 300 MG CAPSULE (FP) PO SCH (06:30)
--- NOTE | 2016-08-21 09:16 | DS ---
[facility] Detox Discharge Summary Admission Date: 08/16/16 Discharge Date: 08/21/16 - History Present History: Cocaine Dependence, Opioid Dependence, Sedative Dependence - Physical Exam Results Vital Signs: Vital Signs Temperature 97.5 F L 08/21/16 06:00 Pulse Rate 83 08/21/16 06:00 Respiratory Rate 18 08/21/16 06:00 Blood Pressure 90/52 08/21/16 06:00 O2 Sat by Pulse Oximetry (%) - Treatment Hospital Course: Detox Protocol Followed, Detoxed Safely, Responded well, Discharged Condition Good - Medication Discharge Medications: Ambulatory Orders Lamotrigine [Lamictal] 100 mg PO HS 11/25/15 Gabapentin [Neurontin -] 300 mg PO TID #90 07/04/16 Lamotrigine [Lamictal -] 25 mg PO HS #30 tablet 07/04/16 Gabapentin [Neurontin -] 300 mg PO TID #90 cap 08/16/16 Lamotrigine [LaMICtal -] 100 mg PO HS #30 tablet 08/16/16 Lamotrigine [Lamictal -] 25 mg PO HS #30 tablet 08/16/16 - Diagnosis (1) Nicotine dependence Current Visit: Yes Status: Chronic Qualifiers: Nicotine product type: cigarettes Substance use status: in withdrawal Qualified Code(s): F17.213 - Nicotine dependence, cigarettes, with withdrawal (2) Opioid dependence with withdrawal Current Visit: Yes Status: Acute (3) Cocaine abuse Current Visit: No Status: Chronic (4) PCP dependence Current Visit: No Status: Chronic (5) Sedative, hypnotic or anxiolytic dependence with withdrawal, uncomplicated Current Visit: No Status: Chronic (6) Anxiety and depression Current Visit: No Status: Suspected
[2016-08-21 09:52] VITALS: BP 104/71; PULSE 92; TEMP 96.8
[2016-08-21] MEDS: NICOTINE 14 MG/24 HOURS TOPICAL PATCH TD SCH (11:30)
[2016-08-21] MEDS: PRENATAL VITAMINS W/ FOLIC ACID TABLET (FP) PO SCH (11:30)
== END 2016-08-21 11:44 | disposition other institution (70) | DRG 773 ==
LOC: YASAS 08:41 → Y6N 12:22
PROVIDERS: ADMIT Internal Medicine Addiction Medicine; ATTEND Internal Medicine Addiction Medicine
PROC: HZ2ZZZZ Detoxification Services for Substance Abuse Treatment (ICD-10-PCS; principal; 2016-08-21)
DX: F11.23 Opioid dependence with withdrawal (principal); F13.230 Sedative, hypnotic or anxiolytic dependence with withdrawal, uncomplicated; F14.20 Cocaine dependence, uncomplicated; F16.20 Hallucinogen dependence, uncomplicated; F17.210 Nicotine dependence, cigarettes, uncomplicated; F19.24 Other psychoactive substance dependence with psychoactive substance-induced mood disorder
CPT/HCPCS: 36415; 80053; 81003; 81015; 84450; 84460; 85027; 85610; 86593; 93005; 93010

== ENCOUNTER 2016-08-21 11:42 | Inpatient (IN) | payer OTHER ==
[2016-08-21 12:17] VITALS: BMI 19.9
[2016-08-21] MEDS ORDERED: LOPERAMIDE HCL 2 MG CAPSULE PO PRN (12:44)
[2016-08-21] MEDS ORDERED: MAGNESIUM HYDROX 2400MG/30ML ORAL SUSPENSION 30 ML CUP PO PRN (12:44)
[2016-08-21] MEDS ORDERED: MENTHOL/PHENOL 1 EACH UD MM PRN (12:44)
[2016-08-21] MEDS ORDERED: guaiFENesin/D-METHORPHAN HB 10 ML UNIT-DOSE CUPS PO PRN (12:44)
[2016-08-21] MEDS ORDERED: P-EPHED 60MG/TRIPROLIDI 2.5MG TABLET PO PRN (12:44)
[2016-08-21] MEDS ORDERED: MAG HYDROX/AL HYDROX/SIMETH 30 ML UNIT-DOSE CUP PO PRN (12:44)
[2016-08-21] MEDS ORDERED: MAGNESIUM CITRATE 300 ML BOTTLE PO PRN (12:44)
--- NOTE | 2016-08-21 12:46 | HP ---
PATRICIA LACKEY Rehab Assess/Revision - Admission History Admitted to Rehab from: [facility] Date of Admission to Rehab: 08/21/16 - Vital signs Vital Signs: Vital Signs Period Temp Pulse Resp BP Sys/Tse Pulse Ox Last 24 Hr 97.5 F-97.5 F 73-73 88-88/58-58 - Findings Detox History & Physical reviewed: Yes Concur with findings: Yes
[2016-08-21] MEDS: IBUPROFEN 400 MG TABLET (FP) PO PRN (17:24)
[2016-08-21] MEDS: NICOTINE POLACRILEX 2 MG GUM BUC PRN (17:27)
[2016-08-21] MEDS ORDERED: lamoTRIgine 25 MG TABLET ONE (21:07)
[2016-08-21] MEDS ORDERED: lamoTRIgine 100 MG TABLET (FP) ONE (21:07)
[2016-08-21] MEDS: LAMOTRIGINE PO SCH (21:13)
[2016-08-21] MEDS: GABAPENTIN 300 MG CAPSULE (FP) PO SCH (21:13)
[2016-08-21] MEDS: THIAMINE HCL 100 MG TABLET (FP) PO SCH (21:13)
[2016-08-21] MEDS ORDERED: lamoTRIgine 100 MG TABLET (FP) PO SCH (22:00)
[2016-08-22] MEDS: GABAPENTIN 300 MG CAPSULE (FP) PO SCH ×3 (06:24→21:12)
[2016-08-22] MEDS: PRENATAL VITAMINS W/ FOLIC ACID TABLET (FP) PO SCH (09:55)
[2016-08-22] MEDS: IBUPROFEN 400 MG TABLET (FP) PO PRN (09:56)
[2016-08-22 12:01] LABS: HIV 1 & 2 AB NEGATIVE; HIV 1 AGp24 NEGATIVE
--- NOTE | 2016-08-22 13:41 | HP ---
Psychiatrist Admission - Data Date of interview: 08/22/16 Admission source: detox Identifying data: This is the first admission to [facility] inpatient rehablitation for this 40 yo [place] single childless female,undomiciled,supported by relatives. Medical History: Hep C. Psychiatric History: Patient reports some anxiety-medicated her self with drugs, recently after her boyfriend started feeling depressed,using drugs more heavily.She was eeen by psychiatrist about 2 yo after she lost her boyfriend, placed on Clonopin and Lamictal.Then she was placed on Gabapentin while in one of the rehab programs.Current meds which had been continued in detox on prescribed by :Gabapentin 300 mg po tid,Lamictal 125 mg po hs. Physical/Sexual Abuse/Trauma History: denies Vital Signs: Vital Signs - 24 hr 08/22/16 08/22/16 03:30 06:50 Temperature 97.5 F L Pulse Rate 64 Respiratory 18 18 Rate Blood Pressure 95/60 Allergies/Adverse Reactions: Allergies Allergy/AdvReac Type Severity Reaction Status Date / Time No Known Allergies Allergy Verified 08/16/16 11:46 Date of last physical exam: 08/16/16 Concur with the findings of this exam: Yes - Substance Abuse/Tx History Hx Alcohol Use: No Hx Substance Use: Yes (PCP since 2015,cocaine since last month,heroin iv since 28 yo,benzo since17) Substance Use Type: Cocaine, Heroin, Tranquilizers Hx Substance Use Treatment: Yes (completed fdc in 2014) - Admission Criteria Previous failed treatment: Yes Poor recovery environment: Yes Comorbidities: Yes Lacks judgement: Yes Mental Status Exam - Mental Status Exam Alert and Oriented to: Time, Place, Person Cognitive Function: Grossly Intact Patient Appearance: Well Groomed Mood: Anxious, Irritable Affect: Labile Patient Behavior: Cooperative Speech Pattern: Clear Voice Loudness: Normal Thought Process: Goal Oriented Thought Disorder: Not Present Hallucinations: Denies Suicidal Ideation: Denies Homicidal Ideation: Denies Insight/Judgement: Good Sleep: Fair Appetite: Good Muscle strength/Tone: Normal Gait/Station: Normal Psychiatric Findings - Problem List ([place] 1, 2,3) (1) Opioid dependence with withdrawal Current Visit: Yes Status: Chronic (2) Substance induced mood disorder Current Visit: Yes Status: Chronic (3) Cocaine abuse Current Visit: Yes Status: Chronic (4) Nicotine dependence Current Visit: Yes Status: Chronic Qualifiers: Nicotine product type: cigarettes Substance use status: in withdrawal Qualified Code(s): F17.213 - Nicotine dependence, cigarettes, with withdrawal (5) PCP dependence Current Visit: Yes Status: Chronic (6) Hep C w/o coma, chronic Current Visit: Yes Status: Chronic - Initial Treatment Plan Initial Treatment Plan: Continue Lamictal 125 mg po hs and Gabapentin 300 mg po tid. Will monitor progress.
[2016-08-22] MEDS ORDERED: lamoTRIgine 100 MG TABLET (FP) ONE (19:15)
[2016-08-22] MEDS ORDERED: lamoTRIgine 25 MG TABLET ONE (19:16)
[2016-08-22] MEDS: THIAMINE HCL 100 MG TABLET (FP) PO SCH (21:12)
[2016-08-22] MEDS: LAMOTRIGINE PO SCH (21:12)
[2016-08-23] MEDS: GABAPENTIN 300 MG CAPSULE (FP) PO SCH ×3 (06:26→21:18)
[2016-08-23] MEDS: NICOTINE POLACRILEX 2 MG GUM BUC PRN ×4 (06:26→21:18)
[2016-08-23] MEDS: PRENATAL VITAMINS W/ FOLIC ACID TABLET (FP) PO SCH (09:47)
[2016-08-23] MEDS: IBUPROFEN 400 MG TABLET (FP) PO PRN (13:16)
[2016-08-23] MEDS: COLLOIDAL OATMEAL 1 BAR EACH TP PRN (13:36)
[2016-08-23] MEDS ORDERED: lamoTRIgine 25 MG TABLET ONE (19:18)
[2016-08-23] MEDS ORDERED: lamoTRIgine 100 MG TABLET (FP) ONE (19:18)
[2016-08-23] MEDS: THIAMINE HCL 100 MG TABLET (FP) PO SCH (21:17)
[2016-08-23] MEDS: LAMOTRIGINE PO SCH (21:18)
[2016-08-24] MEDS: GABAPENTIN 300 MG CAPSULE (FP) PO SCH ×3 (06:58→21:17)
[2016-08-24] MEDS: PRENATAL VITAMINS W/ FOLIC ACID TABLET (FP) PO SCH (09:47)
[2016-08-24] MEDS: NICOTINE POLACRILEX 2 MG GUM BUC PRN ×2 (09:48→17:47)
[2016-08-24] MEDS ORDERED: lamoTRIgine 100 MG TABLET (FP) ONE (19:34)
[2016-08-24] MEDS ORDERED: lamoTRIgine 25 MG TABLET ONE (19:35)
[2016-08-24] MEDS: LAMOTRIGINE PO SCH (21:17)
[2016-08-24] MEDS: THIAMINE HCL 100 MG TABLET (FP) PO SCH (21:17)
[2016-08-25] MEDS: GABAPENTIN 300 MG CAPSULE (FP) PO SCH ×3 (06:32→21:37)
[2016-08-25] MEDS: PRENATAL VITAMINS W/ FOLIC ACID TABLET (FP) PO SCH (09:39)
[2016-08-25] MEDS: NICOTINE POLACRILEX 2 MG GUM BUC PRN ×2 (09:40→18:12)
[2016-08-25] MEDS ORDERED: lamoTRIgine 100 MG TABLET (FP) ONE (19:35)
[2016-08-25] MEDS ORDERED: lamoTRIgine 25 MG TABLET ONE (19:35)
[2016-08-25] MEDS: IBUPROFEN 400 MG TABLET (FP) PO PRN (21:36)
[2016-08-25] MEDS: LAMOTRIGINE PO SCH (21:36)
[2016-08-25] MEDS: THIAMINE HCL 100 MG TABLET (FP) PO SCH (21:37)
[2016-08-26] MEDS: GABAPENTIN 300 MG CAPSULE (FP) PO SCH ×3 (06:34→21:32)
[2016-08-26] MEDS: NICOTINE POLACRILEX 2 MG GUM BUC PRN ×4 (06:36→21:33)
[2016-08-26] MEDS: PRENATAL VITAMINS W/ FOLIC ACID TABLET (FP) PO SCH (09:45)
[2016-08-26] MEDS ORDERED: lamoTRIgine 25 MG TABLET ONE (20:26)
[2016-08-26] MEDS ORDERED: lamoTRIgine 100 MG TABLET (FP) ONE (20:26)
[2016-08-26] MEDS: THIAMINE HCL 100 MG TABLET (FP) PO SCH (21:32)
[2016-08-26] MEDS: LAMOTRIGINE PO SCH (21:32)
[2016-08-27] MEDS: GABAPENTIN 300 MG CAPSULE (FP) PO SCH ×3 (06:20→21:09)
[2016-08-27] MEDS: PRENATAL VITAMINS W/ FOLIC ACID TABLET (FP) PO SCH (09:57)
[2016-08-27] MEDS: NICOTINE POLACRILEX 2 MG GUM BUC PRN ×2 (09:59→13:21)
[2016-08-27] MEDS ORDERED: lamoTRIgine 25 MG TABLET ONE (19:36)
[2016-08-27] MEDS ORDERED: lamoTRIgine 100 MG TABLET (FP) ONE (19:36)
[2016-08-27] MEDS: THIAMINE HCL 100 MG TABLET (FP) PO SCH (21:09)
[2016-08-27] MEDS: LAMOTRIGINE PO SCH (21:09)
[2016-08-28] MEDS: GABAPENTIN 300 MG CAPSULE (FP) PO SCH ×3 (06:32→21:28)
[2016-08-28] MEDS: NICOTINE POLACRILEX 2 MG GUM BUC PRN ×4 (06:33→21:30)
[2016-08-28] MEDS: PRENATAL VITAMINS W/ FOLIC ACID TABLET (FP) PO SCH (09:54)
[2016-08-28] MEDS ORDERED: lamoTRIgine 100 MG TABLET (FP) ONE (19:38)
[2016-08-28] MEDS ORDERED: lamoTRIgine 25 MG TABLET ONE (19:39)
[2016-08-28] MEDS: LAMOTRIGINE PO SCH (21:28)
[2016-08-28] MEDS: THIAMINE HCL 100 MG TABLET (FP) PO SCH (21:28)
[2016-08-28] MEDS: diphenhydrAMINE HCL 50 MG CAPSULE PO PRN (21:30)
[2016-08-29] MEDS: GABAPENTIN 300 MG CAPSULE (FP) PO SCH ×3 (06:26→21:22)
[2016-08-29] MEDS: NICOTINE POLACRILEX 2 MG GUM BUC PRN ×2 (06:27→13:07)
[2016-08-29] MEDS: PRENATAL VITAMINS W/ FOLIC ACID TABLET (FP) PO SCH (09:51)
[2016-08-29] MEDS ORDERED: lamoTRIgine 25 MG TABLET ONE (19:36)
[2016-08-29] MEDS ORDERED: lamoTRIgine 100 MG TABLET (FP) ONE (19:36)
[2016-08-29] MEDS: LAMOTRIGINE PO SCH (21:22)
[2016-08-29] MEDS: THIAMINE HCL 100 MG TABLET (FP) PO SCH (21:23)
[2016-08-29] MEDS: diphenhydrAMINE HCL 50 MG CAPSULE PO PRN (21:23)
[2016-08-30] MEDS: NICOTINE POLACRILEX 2 MG GUM BUC PRN ×4 (06:25→21:16)
[2016-08-30] MEDS: GABAPENTIN 300 MG CAPSULE (FP) PO SCH ×3 (06:25→21:14)
[2016-08-30] MEDS: PRENATAL VITAMINS W/ FOLIC ACID TABLET (FP) PO SCH (09:59)
[2016-08-30] MEDS ORDERED: lamoTRIgine 25 MG TABLET ONE (19:11)
[2016-08-30] MEDS ORDERED: lamoTRIgine 100 MG TABLET (FP) ONE (19:11)
[2016-08-30] MEDS: LAMOTRIGINE PO SCH (21:14)
[2016-08-30] MEDS: THIAMINE HCL 100 MG TABLET (FP) PO SCH (21:15)
[2016-08-31] MEDS: GABAPENTIN 300 MG CAPSULE (FP) PO SCH ×3 (06:16→21:27)
[2016-08-31] MEDS: NICOTINE POLACRILEX 2 MG GUM BUC PRN ×4 (06:16→18:54)
[2016-08-31] MEDS: PRENATAL VITAMINS W/ FOLIC ACID TABLET (FP) PO SCH (10:12)
[2016-08-31] MEDS: ACETAMINOPHEN 325 MG TABLET (FP) PO PRN ×2 (15:01→21:27)
[2016-08-31] MEDS ORDERED: lamoTRIgine 25 MG TABLET ONE (19:30)
[2016-08-31] MEDS ORDERED: lamoTRIgine 100 MG TABLET (FP) ONE (19:30)
[2016-08-31] MEDS: LAMOTRIGINE PO SCH (21:27)
[2016-08-31] MEDS: THIAMINE HCL 100 MG TABLET (FP) PO SCH (21:27)
[2016-09-01] MEDS: diphenhydrAMINE HCL 50 MG CAPSULE PO PRN (00:41)
[2016-09-01] MEDS: IBUPROFEN 400 MG TABLET (FP) PO PRN ×2 (05:43→12:40)
[2016-09-01] MEDS: GABAPENTIN 300 MG CAPSULE (FP) PO SCH ×3 (06:39→21:20)
[2016-09-01] MEDS: NICOTINE POLACRILEX 2 MG GUM BUC PRN ×3 (09:39→21:21)
[2016-09-01] MEDS: PRENATAL VITAMINS W/ FOLIC ACID TABLET (FP) PO SCH (09:39)
[2016-09-01] MEDS ORDERED: lamoTRIgine 100 MG TABLET (FP) ONE (19:47)
[2016-09-01] MEDS ORDERED: lamoTRIgine 25 MG TABLET ONE (19:47)
[2016-09-01] MEDS: LAMOTRIGINE PO SCH (21:20)
[2016-09-01] MEDS: THIAMINE HCL 100 MG TABLET (FP) PO SCH (21:21)
[2016-09-02] MEDS: GABAPENTIN 300 MG CAPSULE (FP) PO SCH ×3 (06:38→21:25)
[2016-09-02] MEDS: NICOTINE POLACRILEX 2 MG GUM BUC PRN ×2 (06:39→13:02)
[2016-09-02] MEDS: PRENATAL VITAMINS W/ FOLIC ACID TABLET (FP) PO SCH (09:41)
[2016-09-02] MEDS: IBUPROFEN 400 MG TABLET (FP) PO PRN (16:27)
[2016-09-02] MEDS ORDERED: lamoTRIgine 25 MG TABLET ONE (19:36)
[2016-09-02] MEDS ORDERED: lamoTRIgine 100 MG TABLET (FP) ONE (19:36)
[2016-09-02] MEDS: THIAMINE HCL 100 MG TABLET (FP) PO SCH (21:25)
[2016-09-02] MEDS: diphenhydrAMINE HCL 50 MG CAPSULE PO PRN (21:25)
[2016-09-02] MEDS: LAMOTRIGINE PO SCH (21:25)
[2016-09-03] MEDS: NICOTINE POLACRILEX 2 MG GUM BUC PRN ×3 (06:41→17:51)
[2016-09-03] MEDS: GABAPENTIN 300 MG CAPSULE (FP) PO SCH ×3 (06:41→21:16)
[2016-09-03] MEDS: IBUPROFEN 400 MG TABLET (FP) PO PRN ×2 (06:41→17:50)
[2016-09-03] MEDS: COLLOIDAL OATMEAL 1 BAR EACH TP PRN (09:52)
[2016-09-03] MEDS: PRENATAL VITAMINS W/ FOLIC ACID TABLET (FP) PO SCH (09:52)
[2016-09-03] MEDS: ACETAMINOPHEN 325 MG TABLET (FP) PO PRN (11:56)
[2016-09-03] MEDS ORDERED: lamoTRIgine 25 MG TABLET ONE (19:21)
[2016-09-03] MEDS ORDERED: lamoTRIgine 100 MG TABLET (FP) ONE (19:21)
[2016-09-03] MEDS: THIAMINE HCL 100 MG TABLET (FP) PO SCH (21:16)
[2016-09-03] MEDS: LAMOTRIGINE PO SCH (21:16)
[2016-09-03] MEDS: diphenhydrAMINE HCL 50 MG CAPSULE PO PRN (21:16)
[2016-09-04] MEDS: GABAPENTIN 300 MG CAPSULE (FP) PO SCH ×3 (06:23→21:11)
[2016-09-04] MEDS: NICOTINE POLACRILEX 2 MG GUM BUC PRN ×4 (06:24→21:12)
[2016-09-04] MEDS: IBUPROFEN 400 MG TABLET (FP) PO PRN ×2 (06:24→15:05)
[2016-09-04] MEDS: PRENATAL VITAMINS W/ FOLIC ACID TABLET (FP) PO SCH (10:02)
[2016-09-04] MEDS ORDERED: lamoTRIgine 25 MG TABLET ONE (20:29)
[2016-09-04] MEDS ORDERED: lamoTRIgine 100 MG TABLET (FP) ONE (20:29)
[2016-09-04] MEDS: LAMOTRIGINE PO SCH (21:10)
[2016-09-04] MEDS: diphenhydrAMINE HCL 50 MG CAPSULE PO PRN (21:11)
[2016-09-04] MEDS: THIAMINE HCL 100 MG TABLET (FP) PO SCH (21:11)
[2016-09-05] MEDS: GABAPENTIN 300 MG CAPSULE (FP) PO SCH ×3 (06:14→21:14)
[2016-09-05] MEDS: NICOTINE POLACRILEX 2 MG GUM BUC PRN ×3 (06:14→13:12)
[2016-09-05] MEDS: PRENATAL VITAMINS W/ FOLIC ACID TABLET (FP) PO SCH (10:03)
[2016-09-05] MEDS ORDERED: lamoTRIgine 25 MG TABLET ONE (19:49)
[2016-09-05] MEDS ORDERED: lamoTRIgine 100 MG TABLET (FP) ONE (19:49)
[2016-09-05] MEDS: LAMOTRIGINE PO SCH (21:13)
[2016-09-05] MEDS: diphenhydrAMINE HCL 50 MG CAPSULE PO PRN (21:13)
[2016-09-05] MEDS: THIAMINE HCL 100 MG TABLET (FP) PO SCH (21:14)
[2016-09-06] MEDS: GABAPENTIN 300 MG CAPSULE (FP) PO SCH ×3 (06:23→21:20)
[2016-09-06] MEDS: NICOTINE POLACRILEX 2 MG GUM BUC PRN ×4 (06:24→18:04)
[2016-09-06] MEDS: PRENATAL VITAMINS W/ FOLIC ACID TABLET (FP) PO SCH (09:50)
[2016-09-06] MEDS ORDERED: lamoTRIgine 25 MG TABLET ONE (19:33)
[2016-09-06] MEDS ORDERED: lamoTRIgine 100 MG TABLET (FP) ONE (19:33)
[2016-09-06] MEDS: THIAMINE HCL 100 MG TABLET (FP) PO SCH (21:20)
[2016-09-06] MEDS: LAMOTRIGINE PO SCH (21:20)
[2016-09-06] MEDS: diphenhydrAMINE HCL 50 MG CAPSULE PO PRN (21:21)
[2016-09-07] MEDS: GABAPENTIN 300 MG CAPSULE (FP) PO SCH ×3 (06:16→21:11)
[2016-09-07] MEDS: NICOTINE POLACRILEX 2 MG GUM BUC PRN ×4 (06:17→21:12)
[2016-09-07] MEDS: PRENATAL VITAMINS W/ FOLIC ACID TABLET (FP) PO SCH (09:52)
[2016-09-07] MEDS ORDERED: lamoTRIgine 25 MG TABLET ONE (19:12)
[2016-09-07] MEDS ORDERED: lamoTRIgine 100 MG TABLET (FP) ONE (19:12)
[2016-09-07] MEDS: LAMOTRIGINE PO SCH (21:11)
[2016-09-07] MEDS: diphenhydrAMINE HCL 50 MG CAPSULE PO PRN (21:12)
[2016-09-07] MEDS: THIAMINE HCL 100 MG TABLET (FP) PO SCH (21:12)
[2016-09-08] MEDS: GABAPENTIN 300 MG CAPSULE (FP) PO SCH ×3 (06:26→21:05)
[2016-09-08] MEDS: NICOTINE POLACRILEX 2 MG GUM BUC PRN ×3 (06:27→13:45)
[2016-09-08] MEDS: PRENATAL VITAMINS W/ FOLIC ACID TABLET (FP) PO SCH (09:42)
[2016-09-08] MEDS ORDERED: lamoTRIgine 100 MG TABLET (FP) ONE (19:20)
[2016-09-08] MEDS ORDERED: lamoTRIgine 25 MG TABLET ONE (19:21)
[2016-09-08] MEDS: LAMOTRIGINE PO SCH (21:05)
[2016-09-08] MEDS: diphenhydrAMINE HCL 50 MG CAPSULE PO PRN (21:05)
[2016-09-08] MEDS: THIAMINE HCL 100 MG TABLET (FP) PO SCH (21:05)
[2016-09-09] MEDS: GABAPENTIN 300 MG CAPSULE (FP) PO SCH ×3 (06:27→21:10)
[2016-09-09] MEDS: NICOTINE POLACRILEX 2 MG GUM BUC PRN ×4 (06:27→21:10)
[2016-09-09] MEDS: PRENATAL VITAMINS W/ FOLIC ACID TABLET (FP) PO SCH (09:33)
[2016-09-09] MEDS: diphenhydrAMINE HCL 50 MG CAPSULE PO PRN (21:10)
[2016-09-09] MEDS: LAMOTRIGINE PO SCH (21:10)
[2016-09-09] MEDS: THIAMINE HCL 100 MG TABLET (FP) PO SCH (21:10)
[2016-09-10] MEDS: GABAPENTIN 300 MG CAPSULE (FP) PO SCH ×3 (06:25→21:22)
[2016-09-10] MEDS: NICOTINE POLACRILEX 2 MG GUM BUC PRN ×2 (06:26→10:37)
[2016-09-10] MEDS: PRENATAL VITAMINS W/ FOLIC ACID TABLET (FP) PO SCH (09:58)
--- NOTE | 2016-09-10 15:28 | PN ---
Psychiatric Progress Note Vital Signs: Vital Signs Period Temp Pulse Resp BP Sys/Tse Pulse Ox Last 24 Hr 97.5 F 83 16-18 85/54 Date of Session: 09/10/16 Chief Complaint:: discharge visit HPI: Opioid,PCP,Cocaine dependence comorbid with Substance induced mood disorder. ROS: Hep C. Current Medications: Active Medications Generic Name Dose Route Start Last Admin Trade Name Freq PRN Reason Stop Dose Admin Acetaminophen 650 mg 08/21/16 12:44 09/03/16 11:56 Tylenol - PO 650 mg Q4H PRN Administration FEVER OR PAIN Al Hydroxide/Mg Hydroxide 30 ml 08/21/16 12:44 08/22/16 21:14 Mylanta Oral Suspension - PO 30 ml Q6H PRN Administration DYSPEPSIA Colloidal Oatmeal 1 applic 08/21/16 12:44 09/03/16 09:52 Aveeno Soap - TP 1 bar DAILY PRN Administration HYGEINE Diphenhydramine HCl 50 mg 08/21/16 12:44 09/09/16 21:10 Benadryl - PO 50 mg HSMR1 PRN Administration FOR ITCHING Eucalyptus/Menthol/Phenol/Sorbitol 1 each 08/21/16 12:44 09/01/16 05:43 Cepastat Lozenge - MM 1 each Q4H PRN Administration SORE THROAT Gabapentin 300 mg 08/21/16 22:00 09/10/16 13:13 Neurontin - PO 300 mg TID GER Administration Guaifenesin 10 ml 08/21/16 12:44 Robitussin Dm - PO Q6H PRN COUGH Ibuprofen 400 mg 08/21/16 12:44 09/04/16 15:05 Motrin - PO 400 mg Q6H PRN Administration PAIN Lamotrigine 25 mg/ Lamotrigine 125 mg 08/21/16 22:00 09/09/16 21:10 100 mg PO 125 mg HS GER Administration Loperamide HCl 4 mg 08/21/16 12:44 Imodium - PO Q6H PRN DIARRHEA Magnesium Hydroxide 30 ml 08/21/16 12:44 08/27/16 09:58 Milk Of Magnesia - PO 30 ml DAILY PRN Administration CONSTIPATION Nicotine Polacrilex 2 mg 08/21/16 12:44 09/10/16 10:37 Nicorette Gum - BUC 2 mg Q2H PRN Administration NICOTINE REPLACEMENT RX Multivit/Folic Acid/Iron 1 tab 08/22/16 10:00 09/10/16 09:58 Vitamins (Sjr) - PO 1 tab DAILY GER Administration Pseudoephedrine/Triprolidine 1 combo 08/21/16 12:44 Actifed - PO TID PRN NASAL CONGESTION Thiamine HCl 100 mg 08/21/16 22:00 09/09/16 21:10 Vitamin B1 - PO 100 mg HS GER Administration Current Side Effect: No Lab tests ordered: No Lab tests reviewed: Yes Provider note:: Patient will complete this program tomorrow 09/11/16.She has met her treatment goals and will continue to address her issues on outpatient basis at [facility] rehabilitaion program.Patient continues to find that current medications :Neurontin 300 mg po tid and Lamictal 125 mg po hs help with mood instability and anxiety.Scripts for 30 days supply provided. Therapy provided focusing on relapse prevention including coping skills,support utilization to maintain recovery. Patient is stable for discharge tomorrow. Total face to face time:: 30 Mental Status Exam - Mental Status Exam Alert and Oriented to: Time, Place, Person Cognitive Function: Grossly Intact Patient Appearance: Well Groomed Mood: Euthymic Affect: Mood Congruent Patient Behavior: Cooperative Speech Pattern: Clear Voice Loudness: Normal Thought Process: Goal Oriented Thought Disorder: Not Present Hallucinations: Denies Suicidal Ideation: Denies Homicidal Ideation: Denies Insight/Judgement: Fair Sleep: Fair Appetite: Good Muscle strength/Tone: Normal Gait/Station: Normal Psychiatric Treatment Plan - Problem List (1) Opioid dependence with withdrawal Current Visit: Yes (2) Substance induced mood disorder Current Visit: Yes (3) Cocaine abuse Current Visit: Yes (4) Nicotine dependence Current Visit: Yes Qualifiers: Nicotine product type: cigarettes Substance use status: in withdrawal Qualified Code(s): F17.213 - Nicotine dependence, cigarettes, with withdrawal (5) PCP dependence Current Visit: Yes (6) Hep C w/o coma, chronic Current Visit: Yes
[2016-09-10] MEDS ORDERED: lamoTRIgine 100 MG TABLET (FP) ONE (19:16)
[2016-09-10] MEDS ORDERED: lamoTRIgine 25 MG TABLET ONE (19:16)
[2016-09-10] MEDS: diphenhydrAMINE HCL 50 MG CAPSULE PO PRN (21:22)
[2016-09-10] MEDS: THIAMINE HCL 100 MG TABLET (FP) PO SCH (21:22)
[2016-09-10] MEDS: LAMOTRIGINE PO SCH (21:22)
[2016-09-11] MEDS: NICOTINE POLACRILEX 2 MG GUM BUC PRN (06:39)
[2016-09-11] MEDS: GABAPENTIN 300 MG CAPSULE (FP) PO SCH (06:39)
[2016-09-11 07:36] VITALS: BP 103/67; PULSE 88; TEMP 97.3
[2016-09-11] MEDS: PRENATAL VITAMINS W/ FOLIC ACID TABLET (FP) PO SCH (09:55)
== END 2016-09-11 10:00 | disposition home or self-care (01) | DRG 772 ==
LOC: YASAS 11:42 → Y3E 11:43
PROVIDERS: ADMIT Psychiatry & Neurology Psychiatry; ATTEND Psychiatry & Neurology Psychiatry
PROC: HZ42ZZZ Group Counseling for Substance Abuse Treatment, Cognitive-Behavioral (ICD-10-PCS; principal; 2016-08-21)
DX: F11.20 Opioid dependence, uncomplicated (principal); F16.20 Hallucinogen dependence, uncomplicated; F14.10 Cocaine abuse, uncomplicated; F17.213 Nicotine dependence, cigarettes, with withdrawal; F19.24 Other psychoactive substance dependence with psychoactive substance-induced mood disorder; B18.2 Chronic viral hepatitis C
CPT/HCPCS: 36415; 87389

== ENCOUNTER 2018-02-07 11:53 | Emergency (ER) | payer OTHER ==
[2018-02-07 12:13] VITALS: BP 105/62; PULSE 76; TEMP 97.8; BMI 20.1
--- NOTE | 2018-02-07 12:36 | PDOC ---
History of Present Illness - General Chief Complaint: Head/Neck problem Stated Complaint: R FACE & BACK TINGLING X 1 HR Time Seen by Provider: 02/07/18 12:35 - History of Present Illness Initial Comments: 02/07/18 19:01 Chief complaint: Paresthesias and pain History of present illness: Patient complains of tingling and pain in the area of the scapula on the right, trapezius posterior scalp and lateral neck. Onset this morning. No history of trauma. Review of systems: Denies visual symptoms, unsteadiness of gait, chest pain, shortness of breath, abdominal pain, nausea, vomiting, diarrhea, vaginal bleeding or discharge, urinary tract symptoms. Past medical history: Drug and alcohol abuse, denies narcotic use at present, maintained on Vivitrol, last dose approximately 2 weeks ago. Past History - Past Medical History Allergies/Adverse Reactions: Allergies Allergy/AdvReac Type Severity Reaction Status Date / Time No Known Allergies Allergy Verified 02/07/18 12:05 Home Medications: Ambulatory Orders Diclofenac Sodium [Voltaren -] 75 mg PO BID #15 tablet. 02/07/18 Gabapentin [Neurontin] 300 mg PO DAILY 02/07/18 Gabapentin [Neurontin] 600 mg PO HS 02/07/18 Lamotrigine [Lamictal] 150 mg PO HS 02/07/18 Naltrexone Microspheres [Vivitrol] 380 mg IM MONTHLY 02/07/18 Anemia: No Asthma: No Cancer: No Cardiac Disorders: No CVA: No COPD: No CHF: No Dementia: No Diabetes: No GI Disorders: No Disorders: No HTN: No Hypercholesterolemia: No Kidney Stones: No Liver Disease: No Psychiatric Problems: Yes Seizures: No Thyroid Disease: No - Surgical History Abdominal Surgery: No Appendectomy: Yes (2003) Cardiac Surgery: No Lung Surgery: No Neurologic Surgery: No Orthopedic Surgery: No - Reproductive History PID: No - Suicide/Smoking/Psychosocial Hx Smoking History: Former smoker Have you smoked in the past 12 months: Yes Number of Cigarettes Smoked Daily: 2 If you are a former smoker, when did you quit?: 2018 Information on smoking cessation initiated: Yes 'Breaking Loose' booklet given: 02/07/18 Hx Alcohol Use: No Drug/Substance Use Hx: Yes Substance Use Type: Cocaine, Heroin, Tranquilizers Hx Substance Use Treatment: Yes ([facility]) *Physical Exam - Vital Signs Last Vital Signs Temp Pulse Resp BP Pulse Ox 97.8 F 76 20 105/62 100 02/07/18 12:00 02/07/18 12:00 02/07/18 12:00 02/07/18 12:00 02/07/18 12:00 ED Treatment Course - LABORATORY CBC & Chemistry Diagram: 02/07/18 13:10 02/07/18 13:10 *DC/Admit/Observation/Transfer Diagnosis at time of Disposition: Neuropathy of left brachial plexus - Discharge Dispostion Disposition: HOME Condition at time of disposition: Improved Decision to Admit order: No - Prescriptions Prescriptions: Diclofenac Sodium [Voltaren -] 75 mg PO BID #15 tablet.dr - Referrals Referrals: Henrry Lechuga MD [Primary Care Provider] - 3 days - Patient Instructions Printed Discharge Instructions: DI for Peripheral Neuropathy - Post Discharge Activity
[2018-02-07 13:23] LABS: HCG,QUALITATIVE URINE Negative
[2018-02-07 13:25] LABS: BASO % 0.5 % (0-2.0); EOS % 1.7 % (0-4.5); HEMATOCRIT 39.6 % (32.4-45.2); HEMOGLOBIN 13.2 GM/dl (10.7-15.3); LYMPH % 22.1 % (8-40); MCH 30.3 pg (25.7-33.7); MCHC 33.3 g/dl (32.0-36.0); MEAN CELL VOLUME 91.1 fl (80-96); MEAN PLT VOLUME 9.9 fl (7.5-11.1); MONO % 6.5 % (3.8-10.2); NEUT % 69.2 % (42.8-82.8); PLATELET COUNT 249 K/MM3 (134-434); RBC 4.35 M/mm3 (3.60-5.2); RDW 12.8 % (11.6-15.6); WHITE BLOOD COUNT 11.4 K/mm3 (4.0-10.8)
[2018-02-07 13:29] LABS: URINE APPEARANCE CLEAR; URINE COLOR YELLOW
[2018-02-07 13:30] LABS: PH,URINE 6.5 (4.5-8); URINE BILIRUBIN NEGATIVE (NEGATIVE); URINE GLUCOSE (UA) NEGATIVE (NEGATIVE); URINE KETONE NEGATIVE (NEGATIVE); URINE LEUK ESTERASE TRACE (NEGATIVE); URINE NITRITE NEGATIVE (NEGATIVE); URINE PROTEIN NEGATIVE (NEGATIVE); URINE UROBILINOGEN 0.2 (0.2-1.0)
[2018-02-07 13:31] LABS: URINE RBC 0-2 /hpf (0-3); URINE SPERM FEW
[2018-02-07 13:32] LABS: ALBUMIN 4.2 g/dl (3.5-5.0); ALK PHOS 44 U/L (32-92); ANION GAP 4 MMOL/L (8-16); BILIRUBIN,TOTAL 0.2 mg/dl (0.2-1.0); BLOOD UREA NITROGEN 20 mg/dl (7-18); CALCIUM 9.3 mg/dl (8.4-10.2); CHLORIDE 104 mmol/L (98-107); CO2 27 mmol/L (22-28); CREATININE 0.7 mg/dl (0.6-1.3); GLUCOSE,RANDOM 96 mg/dl (74-106); POTASSIUM 3.9 mmol/L (3.5-5.1); SGOT/AST 12 U/L (10-42); SGPT/ALT 13 U/L (10-40); SODIUM 135 mmol/L (136-145); TOT PROT 7.1 g/dl (6.4-8.3)
[2018-02-07] MEDS ORDERED: KETOROLAC TROMETHAMINE 60 MG/2 ML VIAL IM ONE (14:24)
[2018-02-07] MEDS ORDERED: hydrOXYzine PAMOATE 25 MG CAPSULE (FP) PO ONE (14:25)
[2018-02-07] MEDS ORDERED: KETOROLAC TROMETHAMINE 60 MG/2 ML VIAL ONE (14:26)
[2018-02-07] MEDS ORDERED: hydrOXYzine HCL 25 MG TABLET (FP) PO ONE (14:27)
== END 2018-02-07 15:01 | disposition home or self-care (01) ==
LOC: FER 11:53
PROC: 3E0233Z Introduction of Anti-inflammatory into Muscle, Percutaneous Approach (ICD-10-PCS; principal; 2018-02-07)
DX: G54.0 Brachial plexus disorders (principal); Z87.891 Personal history of nicotine dependence
CPT/HCPCS: 36415; 80053; 81003; 81015; 84703; 85025; 96372; 99283-25

== ENCOUNTER 2018-02-23 18:41 | Emergency (ER) | payer SELFPAY ==
[2018-02-23 18:55] VITALS: BP 100/52; PULSE 78; TEMP 97.8
--- NOTE | 2018-02-23 19:09 | PDOC ---
History of Present Illness - General Chief Complaint: Suture/Staple Removal(Here) Stated Complaint: SUTURE REMOVAL FROM LEFT WRIST Time Seen by Provider: 02/23/18 19:01 History Source: Patient, Family Exam Limitations: No Limitations - History of Present Illness Initial Comments: 02/23/18 19:07 CHIEF COMPLAINT: Patient is here for a wound check HISTORY OF PRESENT ILLNESS: 42-year-old female had sutures placed in her left arm after getting cut with a knife 10 days ago. There have been no problems with the wound. No fever or chills. REVIEW OF SYSTEMS: No fever or chills. Positive slight discomfort at the wound site, getting better daily. Past History - Past Medical History Allergies/Adverse Reactions: Allergies Allergy/AdvReac Type Severity Reaction Status Date / Time No Known Allergies Allergy Verified 02/07/18 12:05 Home Medications: Ambulatory Orders Gabapentin [Neurontin] 300 mg PO DAILY 02/07/18 Gabapentin [Neurontin] 600 mg PO HS 02/07/18 Lamotrigine [Lamictal] 150 mg PO HS 02/07/18 Naltrexone Microspheres [Vivitrol] 380 mg IM MONTHLY 02/07/18 Anemia: No Asthma: No Cancer: No Cardiac Disorders: No CVA: No COPD: No CHF: No Dementia: No Diabetes: No GI Disorders: No Disorders: No HTN: No Hypercholesterolemia: No Kidney Stones: No Liver Disease: No Psychiatric Problems: Yes (ANXIETY, MOOD DISORDER) Seizures: No Thyroid Disease: No - Surgical History Abdominal Surgery: No Appendectomy: Yes (2003) Cardiac Surgery: No Lung Surgery: No Neurologic Surgery: No Orthopedic Surgery: No - Reproductive History PID: No - Suicide/Smoking/Psychosocial Hx Smoking History: Current some day smoker Have you smoked in the past 12 months: Yes Number of Cigarettes Smoked Daily: 2 If you are a former smoker, when did you quit?: 2018 Information on smoking cessation initiated: Yes 'Breaking Loose' booklet given: 08/16/16 Hx Alcohol Use: No Drug/Substance Use Hx: Yes Substance Use Type: Heroin Hx Substance Use Treatment: Yes ([facility]) *Physical Exam - Vital Signs Last Vital Signs Temp Pulse Resp BP Pulse Ox 97.8 F 78 16 100/52 L 100 02/23/18 18:42 02/23/18 18:42 02/23/18 18:42 02/23/18 18:42 02/23/18 18:42 - Physical Exam Comments: 02/23/18 19:08 GENERAL: The patient is awake, alert, and fully oriented, in no acute distress. HEAD: Normal with no signs of trauma. EYES: Pupils equal, round and reactive to light, extraocular movements intact, sclera anicteric, conjunctiva clear. EXTREMITIES: Normal range of motion, no edema. NEUROLOGICAL: Normal speech, normal gait. PSYCH: Normal mood, normal affect. SKIN: The left forearm on the ulnar side has a flap laceration which is healing well. Multiple simple interrupted sutures were all removed. Bacitracin and Band-Aid applied to protect the area. Medical Decision Making - Medical Decision Making 02/23/18 19:09 Patient presents for wound check of left forearm wound. The wound is healing well without signs of infection. Sutures all removed and bandage applied for protection. Patient is stable for discharge. *DC/Admit/Observation/Transfer Diagnosis at time of Disposition: Laceration of left forearm Qualifiers: Encounter type: initial encounter Qualified Code(s): S51.812A - Laceration without foreign body of left forearm, initial encounter - Discharge Dispostion Disposition: HOME Condition at time of disposition: Good Decision to Admit order: No - Referrals Referrals: Henrry Lechuga MD [Primary Care Provider] - - Patient Instructions Printed Discharge Instructions: DI for Suture Removal - Post Discharge Activity
== END 2018-02-23 19:12 | disposition home or self-care (01) ==
LOC: FER 18:41
DX: Z48.02 Encounter for removal of sutures (principal)
CPT/HCPCS: 99281-25